=== PATIENT | female | born 1945 | race Caucasian/White ===

== ENCOUNTER → 2017-12-29 15:27 | Outpatient (CLI) | payer OTHER, SELFPAY ==
--- NOTE | 2017-12-29 15:37 | RAD_ITS ---
STUDY: X-RAY - PELVIS REASON FOR EXAM: Female, 72 years old. Pain TECHNIQUE: One view of the pelvis was obtained. COMPARISON: None. FINDINGS: There is a non-specific bowel gas pattern. Normal visualized soft tissue structures. Normal bilateral iliac wings, sacroiliac joints and visualized sacrum. Normal visualized bilateral superior and inferior pubic rami. Normal pubic symphysis. Normal ischial tuberosities. Normal visualized right femoral head. Normal right acetabulum. Normal right hip joint. Normal visualized left femoral head. Normal left acetabulum. Normal left hip joint. RAD/Pelvis 1 or 2 Views IMPRESSION: Normal x-ray examination of the pelvis. No fracture Electronically Signed: Floyd Morocho, at 7:30 EDT Tel , Service support ,
[2017-12-29 17:21] LABS: Absolute Lymphocyte Count 1.92 X10^3/ul (0.83-4.51); Absolute Neutrophil Count 5.6 X10^3/uL (2.0-7.7); Basophil# 0.02 X10^3/uL; Basophil% 0.2 % (0-1); Eosinophil# 0.12 X10^3/uL; Eosinophils% 1.5 % (0-5); Hematocrit 37.5 % (37-47); Hemoglobin 11.9 g/dl (12.0-15.0); Lymphocyte # 1.92 X10^3/ul (4.0); Lymphocyte % 23.4 % (19-41); Mean Corp Hgb Conc 31.7 g/gl (32-36); Mean Corpuscular Hgb 28.4 pg (27.0-32.0); Mean Corpuscular Volume 89.5 fL (81-99); Mean Platelet Vol. 9.7 fl (6.2-12.0); Monocyte# 0.58 X10^3/uL; Monocyte% 7.1 % (0-10); Neutrophil # 5.57 X10^3/uL (2.7-7.7); Neutrophil % 67.7 % (47-70); Platelet Count 359 K/mm3 (150-450); RBC Distribution Width CV 13.8 % (11.6-14.6); RBC Distribution Width SD 45.2 fl (35.1-43.9); Red Blood Count 4.19 M/mm3 (4.2-5.4); White Blood Count 8.2 K/mm3 (4.4-11.0)
[2017-12-29 17:34] LABS: AST(SGOT) 22 U/L (15-37); Alanine Aminotransfer ALT/SGPT 35 U/L (13-56); Alkaline Phosphatase 115 U/L (45-117); Anion Gap 8 (5-15); BUN 25 mg/dL (7-18); BUN/Creat Ratio 21.6 RATIO (10-20); Calcium,Total 8.9 mg/dL (8.5-10.1); Chloride 107 mmol/L (98-107); Creatinine, Serum 1.16 mg/dL (0.55-1.02); EST Glomerular Filtration Rate 49 mL/min (>60); Est Glom Filt Rate - Afr Amer 59 mL/min (>60); Globulin 4.1 g/dL (2.2-4.2); Glucose 91 mg/dL (74-106); Potassium 4.8 mmol/L (3.5-5.1); Protein, Total 8.1 g/dL (6.4-8.2); Rheumatoid Factor < 10.0 IU/mL (<15); Sodium Level 141 mmol/L (136-145)
[2017-12-29 17:37] LABS: POSITIVE COUNT NO; POSITIVE DIFFERENTIAL NO; POSITIVE MORPHOLOGY NO
[2018-01-04 14:07] LABS: Endomysial Antibody IgA Positive (Negative); Immunoglobulin A 205 mg/dL (87-352)
[2018-01-04 16:09] LABS: CCP IgG Antibodies 14 units (0-19); Deamidated Gliadin IgA 141 units (0-19); Deamidated Gliadin IgG 126 units (0-19); HEPATITIS B SURFACE AG Negative (Negative); HLA B27 Negative (.); Hep B Surface Antibodies Non Reactive (.); Hep C Antibodies <0.1 s/co ratio (0.0-0.9); t-Transglutaminase IgA 51 U/mL (0-3)
== END ==
PROVIDERS: Family Provider Internal Medicine; PCP Internal Medicine; Visit Provider Internal Medicine Rheumatology
DX: M06.4 Inflammatory polyarthropathy (principal); K90.0 Celiac disease; J45.909 Unspecified asthma, uncomplicated; Z87.19 Personal history of other diseases of the digestive system
CPT/HCPCS: 36415; 72170; 80053; 81374; 82784; 83516; 85025; 86200; 86255; 86431; 86706; 86803; 87340

== ENCOUNTER → 2018-04-28 10:03 | Outpatient (CLI) | payer OTHER, SELFPAY ==
[2018-04-28 11:31] LABS: Absolute Lymphocyte Count 1.36 X10^3/ul (0.83-4.51); Absolute Neutrophil Count 2.5 X10^3/uL (2.0-7.7); Basophil# 0.04 X10^3/uL; Basophil% 0.9 % (0-1); Eosinophil# 0.08 X10^3/uL; Eosinophils% 1.8 % (0-5); Hematocrit 36.3 % (37-47); Hemoglobin 11.9 g/dl (12.0-15.0); Lymphocyte # 1.36 X10^3/ul (4.0); Lymphocyte % 30.6 % (19-41); Mean Corp Hgb Conc 32.8 g/gl (32-36); Mean Corpuscular Hgb 28.5 pg (27.0-32.0); Mean Corpuscular Volume 87.1 fL (81-99); Mean Platelet Vol. 9.6 fl (6.2-12.0); Monocyte# 0.51 X10^3/uL; Monocyte% 11.5 % (0-10); Neutrophil # 2.46 X10^3/uL (2.7-7.7); Neutrophil % 55.2 % (47-70); POSITIVE COUNT NO; POSITIVE DIFFERENTIAL NO; POSITIVE MORPHOLOGY NO; Platelet Count 294 K/mm3 (150-450); RBC Distribution Width CV 14.1 % (11.6-14.6); RBC Distribution Width SD 44.8 fl (35.1-43.9); Red Blood Count 4.17 M/mm3 (4.2-5.4); White Blood Count 4.5 K/mm3 (4.4-11.0)
[2018-04-28 11:57] LABS: AST(SGOT) 21 U/L (15-37); Alanine Aminotransfer ALT/SGPT 33 U/L (13-56); Albumin, Serum 3.9 g/dL (3.2-5.0); Alkaline Phosphatase 110 U/L (45-117); Anion Gap 6 (5-15); BUN 15 mg/dL (7-18); BUN/Creat Ratio 16.9 RATIO (10-20); Chloride 108 mmol/L (98-107); Creatinine, Serum 0.89 mg/dL (0.55-1.02); EST Glomerular Filtration Rate 67 mL/min (>60); Est Glom Filt Rate - Afr Amer 81 mL/min (>60); Glucose 93 mg/dL (74-106); Potassium 4.3 mmol/L (3.5-5.1); Protein, Total 7.9 g/dL (6.4-8.2); Sodium Level 141 mmol/L (136-145)
--- OUTSIDE RECORDS SUMMARY | 2018-06-22 19:43 | XMS RPT_ITS ---
:1945 Author Organization OHIP Care Team Providers Name Role Phone Anabel Mendez Attending Unavailable Vellanki, Anabel Referring Unavailable Talampas, Leandra Primary Care Unavailable Vellanki, Anabel Attending Unavailable Vellanki, Anabel Referring Unavailable Talampas, Leandra Primary Care Unavailable ORI WANG Attending Unavailable ORI WANG Referring Unavailable TALAMPAS, LEANDRA D Referring Unavailable TALAMPAS, LEANDRA D Attending Unavailable JANELLE TAYLOR ([facility]) Attending Unavailable TALAMPAS, LEANDRA D Referring Unavailable TALAMPAS, LEANDRA D Attending Unavailable Talampas, Leandra D Admitting Unavailable Talampas, Leandra D Attending Unavailable Talampas, Leandra D Primary Care Unavailable PROBLEMS PROBLEMS DATE TYPE CONDITION / CODE ATTENDING STATUS SOURCE 04/28/2018 Unknown M06.4 - Inflammatory Vellanki, Anabel Active [facility] polyarthropathy / Community M06.4(ICD-10) Hospital Repository 04/28/2018 Unknown K90.0 - Celiac Vellanki, Anabel Active [facility] disease / Community K90.0(ICD-10) Hospital Repository 04/28/2018 Unknown J45.909 - Unspecified Vellanki, Anabel Active [facility] asthma, uncomplicated Community / J45.909(ICD-10) Hospital Repository 01/10/2018 Active Other fatigue / NA Active [facility] R53.83(ICD-10) [facility] [place] Repository 01/10/2018 Active Stiffness of NA Active [facility] unspecified joint, [facility] not elsewhere [place] classified / Repository M25.60(ICD-10) 01/10/2018 Active Elevated C-reactive NA Active [facility] protein (CRP) / [facility] R79.82(ICD-10) [place] Repository 12/29/2017 Unknown Z87.19 - Personal Anabel Mendez Active [facility] history of other Community diseases of the Hospital digestive system / Repository Z87.19(ICD-10) 11/17/2017 Active Unknown / LEANDRA GRAY Active [facility] UNK(Unknown) D [facility] [place] Repository 04/05/2011 Active Vitamin D deficiency, NA Active [facility] unspecified / [facility] E55.9(ICD-10) [place] Rep[facility] 12/01/2005 Active Celiac disease / NA Active [facility] K90.0(ICD-10) [facility] [place] Repository 11/11/2017 Active Pain in unspecified NA Active [facility] joint / [facility] M25.50(ICD-10) [place] Repository 05/16/2017 Active Encounter for NA Active [facility] screening mammogram [facility] for malignant [place] neoplasm of breast / Repository Z12.31(ICD-10) PROCEDURES PROCEDURES No Procedure Records FoundRESULTS RESULTS CBC W/DIFF, AUTOMATED Collected: 04/28/2018 Status: F Source: [place] 10:22 AM [facility] TO [facility] REPOSITORY TYPE CODE TESTS RESULT OUT OF RANGE REFERENCE UNITS LAB L100.1000 4.4-11.0 K/mm3 Normal WBC 4.5 LAB L100.1200 4.2-5.4 M/mm3 Low RBC 4.17 LAB L100.1300 12.0-15.0 g/dl Low HGB 11.9 LAB L100.1400 37-47 % Low HCT 36.3 LAB L100.1500 81-99 fL Normal MCV 87.1 LAB L100.1600 27.0-32.0 pg Normal MCH 28.5 LAB L100.1700 32-36 g/gl Normal MCHC 32.8 LAB L100.1810 11.6-14.6 % Normal RDW CV 14.1 LAB L100.1820 35.1-43.9 fl High RDW SD 44.8 LAB L100.1900 150-450 K/mm3 Normal PLT 294 LAB L100.2000 6.2-12.0 fl Normal MPV 9.6 LAB L100.2100 47-70 % Normal NEUT% 55.2 LAB L100.2200 19-41 % Normal LY% 30.6 LAB L100.2300 0-10 % High MONO% 11.5 LAB L100.2400 0-5 % Normal EO% 1.8 LAB L100.2500 0-1 % Normal BASO% 0.9 LAB L100.2550 0.0-0.9 % Normal IM GRAN % 0.000 Result Comment: IG% - Immature Granulocytes (promyelocytes, myelocytes and metamyelocytes) > 1% indicates that a LEFT SHIFT is Present. LAB L100.2620 2.0-7.7 X10 3/uL Normal Absolute Neut 2.5 LAB L100.2720 0.83-4.51 X10 3/ul Normal Absolute Lymph 1.36 Performed By: #### L100.0100 #### [facility] [address] [place], [address] COMPREHENSIVE METABOLIC Collected: 04/28/2018 Status: F Source: [facility] 10:22 AM [facility] REPOSITORY TYPE CODE TESTS RESULT OUT OF RANGE REFERENCE UNITS LAB L501.0100 74-106 mg/dL Normal GLU 93 Result Comment: Please note revised GLUCOSE reference range effective 2017. LAB L501.1000 7-18 mg/dL Normal BUN 15 LAB L501.1100 0.55-1.02 mg/dL Normal CREAT,SERUM 0.89 Result Comment: The validity of the calculated GFR AND GFRAA in patients over 70 years has not been determined. Clinical correlation is essential. LAB L501.1110 >60 mL/min Normal EST GFR 67 Result Comment: Non- GFR Calc LAB L501.1115 >60 mL/min Normal EST GFR - AA 81 Result Comment: GFR Calc LAB L501.1300 10-20 RATIO Normal BUN/CRE 16.9 LAB L501.1500 6.4-8.2 g/dL T Normal PROT 7.9 LAB L501.1800 3.2-5.0 g/dL Normal ALB 3.9 LAB L501.1950 2.2-4.2 g/dL Normal GLOB 4.0 LAB L501.2000 0.9-2.4 RATIO Normal A/G 1.0 LAB L501.2200 8.5-10.1 mg/dL CA Normal 9.0 LAB L501.4100 15-37 U/L Normal AST 21 LAB L501.4305 45-117 U/L Normal ALK P 110 LAB L501.4405 13-56 U/L Normal ALT 33 LAB L501.4600 0.20-1.00 mg/dL T Normal BILI 0.40 LAB L501.5300 136-145 mmol/L NA Normal 141 LAB L501.5600 3.5-5.1 mmol/L K Normal 4.3 LAB L501.5900 98-107 mmol/L High CL 108 LAB L501.6100 21.0-32.0 mmol/L Normal CO2 27.0 LAB L501.6200 5-15 Normal GAP 6 Performed By: #### L500.4050 #### [facility] [address] [place], [address] CNPN Observed: 02/12/2018 Status: COMPLETED Source: [facility] 12:00 AM [facility] REPOSITORY Telephone (INTMWS) SHANITA HERNANDEZ ([id number]) 1945 F T Date Time Provider Department 02/12/18 LEANDRA GRAY INTMWS During your visit today, we recorded the following information about you: Katrin Huerta, RN, RN 02/12/2018 11:09 AM Signed Pt calls, stating she will need to have PT referral corrected to include neck, shoulders and back. States she will be going to back to PT that she had seen previously in [place]. Please fax referral to pt at [phone]. Katrin Huerta RN, RN 02/12/2018 12:20 PM Signed Faxed to pt. Allergies As of Date: 02/12/2018 Noted Allergy Reaction RYE 12/01/2009 6 - Diarrhea WHEAT GLUTEN 05/03/2005 6 - Diarrhea Date Reviewed: 01/24/2018 Reviewed by: Venice Matthews Ma - Fully Assessed Reason for Visit: PT Order [Other] Primary Visit Diagnosis:Neck pain [M54.2] Other Visit Diagnoses:Bilateral shoulder pain, unspecified chronicity [M25.511, M25.512] Back pain, unspecified back location, unspecified back pain laterality, unspecified chronicity [M54.9] Order(s):CONSULT TO OUTSIDE PHYSICAL THERA [[id number]] Order #: [id number]: 1 Prescriptions as of 02/12/2018 Sig: MELOXICAM 15 MG TABLET Take 1 tablet by mouth once d* ALBUTEROL SULFATE HFA 90 MCG/* Inhale 2 Puffs as instructed * CHOLECALCIFEROL (VITAMIN D3) * Take 2 tablets by mouth once * MULTIVITAMIN TABLET Take 1 tablet by mouth once d* BACK BRACE QuickDraw Patient not taking: Reported on 01/24/2018 * OMEGA-3 FATTY ACIDS 500 MG CA* Take one(1) capsule daily. St* * CALCIUM CARBONATE 600 MG (1,5* Take one(1) tablet daily. 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] INVALID FOR* Vitamin D deficiency [E55.9] INVALID FOR* Cholelithiasis [K80.20] INVALID FOR* Numbness of left foot [R20.8] INVALID FOR* Buttock pain [M79.1] INVALID FOR* Sacroiliac joint pain [M53.3] INVALID FOR* Lumbar strain [S39.012A] INVALID FOR* Lumbar radiculopathy [M54.16] INVALID FOR* Lumbar disc herniation [M51.26] INVALID FOR* Osteopenia [M85.80] Other specified anemias [D64.89] External hemorrhoids without mention of complic* AK (actinic keratosis) [L57.0] Actinic skin damage [L57.8] 02/23/2016 Inflammatory polyarthritis (HCC) [M06.4] INVALID FOR* Encounter Status:Closed by KATRIN HUERTA on 02/12/18 PROGRESS Observed: 01/24/2018 Status: COMPLETED Source: [place] 12:41 PM [facility] REPOSITORY HNO ID: [id number] Author: Leandra Gray Service: (none) Author Type: Physician Type: Progress Notes Filed: 02/11/2018 5:16 PM Note Text: Patient presents with: Discussion: regarding labs AND xrays SUBJECTIVE: Shanita Hernandez is a 72 year old year old lady here today for follow up appointment for review of medical conditions. Noted arthritis symptoms. Stopped meloxicam after 1 month so has been off a month. 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 Walton-3 Fatty Acids (FISH OIL) 500 mg ORAL Cap Take one(1) capsule daily. Stopping 12/18/14 for surgery calcium carbonate 600 mg-cholecalciferol 200 units (CALCIUM 600 + D,3,) 600 mg(1,500mg) -200 unit ORAL Tab Take one(1) tablet daily. Stopped 12/18/14 for surgery meloxicam (MOBIC) 15 mg tablet Take 1 tablet by mouth once daily. With food. (Patient not taking: Reported on 01/24/2018 ) albuterol HFA (VENTOLIN HFA) 90 mcg/actuation inhaler Inhale 2 Puffs as instructed every 6 hours as needed (coughing, wheezing). multivitamin tablet Take 1 tablet by mouth once daily. Back Brace misc QuickDraw (Patient not taking: Reported on 01/24/2018 ) No current facility-administered medications for this visit. OBJECTIVE: BP 124/58 Pulse 112 Resp 16 Wt 75.6 kg (166 lb 9.6 oz) SpO2 97% BMI 30.47 kg/m? Patient is alert, oriented times 3, no apparent distress, affect is bright, reactive. Heart: Regular rate, rhythm, no murmurs, gallops, rubs. Lungs: Clear to auscultation, bilaterally, breathing non labored. Ext: No cyanosis, clubbing, or edema. Synovitis MCP joints both hands. ASSESSMENT AND PLAN: Encounter Diagnosis ICD-10-CM 1. Inflammatory polyarthritis (HCC) M06.4 meloxicam (MOBIC) 15 mg tablet 2. Leg pain, lateral, right M79.604 CONSULT TO PHYSICAL THERAPY 3. Right leg pain M79.604 CONSULT TO PHYSICAL THERAPY 4. Pain in both upper extremities M79.601 CONSULT TO PHYSICAL THERAPY M79.602 deltoid muscles 5. Vitamin D deficiency E55.9 6. Celiac disease K90.0 celiac labs all positive Above issues addressed with patient. Patient involved in shared decision making for management of her medical issues. History and medications reviewed. Epic updated as needed Refills taken care of and meds adjusted as indicated after reviewed history, exam and labs. Health Maintenance reviewed. Updated record and/or ordered tests as recorded. Encouraged on efforts at healthy diet and regular exercise and adequate sleep. Multiple questions and concerns addressed as noted above. Further evaluation and treatment as indicated. Referral as noted above. Discussed management of Celiac. The majority of the visit was spent counseling and/or coordinating care for the patient. Zipx-ap-uzoi time was at least 20 minutes. Leandra Gray MD CNOV Observed: 01/24/2018 Status: COMPLETED Source: [facility] 11:20 AM [facility] REPOSIT[facility] Office Visit (INTMWS) SHANITA HERNANDEZ ([id number]) 1945 F [facility] Date Time Provider Department 01/24/18 11:20 AM LEANDRA GRAY INTMechelleWS During your visit today, we recorded the following information about you: Pulse Respiration Blood pressure Weight 112/minute 16/minute 124/58 75.6 kg Leandra Gray MD 02/11/2018 5:16 PM Signed Patient presents with: Discussion: regarding labs AND xrays SUBJECTIVE: Shanita Hernandez is a 72 year old year old lady here today for follow up appointment for review of medical conditions. Noted arthritis symptoms. Stopped meloxicam after 1 month so has been off a month. 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 Walton-3 Fatty Acids (FISH OIL) 500 mg ORAL Cap Take one(1) capsule daily. Stopping 12/18/14 for surgery calcium carbonate 600 mg-cholecalciferol 200 units (CALCIUM 600 + D,3,) 600 mg(1,500mg) -200 unit ORAL Tab Take one(1) tablet daily. Stopped 12/18/14 for surgery meloxicam (MOBIC) 15 mg tablet Take 1 tablet by mouth once daily. With food. (Patient not taking: Reported on 01/24/2018 ) albuterol HFA (VENTOLIN HFA) 90 mcg/actuation inhaler Inhale 2 Puffs as instructed every 6 hours as needed (coughing, wheezing). multivitamin tablet Take 1 tablet by mouth once daily. Back Brace misc QuickDraw (Patient not taking: Reported on 01/24/2018 ) No current facility-administered medications for this visit. OBJECTIVE: BP 124/58 Pulse 112 Resp 16 Wt 75.6 kg (166 lb 9.6 oz) SpO2 97% BMI 30.47 kg/m? Patient is alert, oriented times 3, no apparent distress, affect is bright, reactive. Heart: Regular rate, rhythm, no murmurs, gallops, rubs. Lungs: Clear to auscultation, bilaterally, breathing non labored. Ext: No cyanosis, clubbing, or edema. Synovitis MCP joints both hands. ASSESSMENT AND PLAN: Encounter Diagnosis ICD-10-CM 1. Inflammatory polyarthritis (HCC) M06.4 meloxicam (MOBIC) 15 mg tablet 2. Leg pain, lateral, right M79.604 CONSULT TO PHYSICAL THERAPY 3. Right leg pain M79.604 CONSULT TO PHYSICAL THERAPY 4. Pain in both upper extremities M79.601 CONSULT TO PHYSICAL THERAPY M79.602 deltoid muscles 5. Vitamin D deficiency E55.9 6. Celiac disease K90.0 celiac labs all positive Above issues addressed with patient. Patient involved in shared decision making for management of her medical issues. History and medications reviewed. Epic updated as needed Refills taken care of and meds adjusted as indicated after reviewed history, exam and labs. Health Maintenance reviewed. Updated record and/or ordered tests as recorded. Encouraged on efforts at healthy diet and regular exercise and adequate sleep. Multiple questions and concerns addressed as noted above. Further evaluation and treatment as indicated. Referral as noted above. Discussed management of Celiac. The majority of the visit was spent counseling and/or coordinating care for the patient. Fnur-ep-stil time was at least 20 minutes. Leandra Gray MD Referring Provider: SELF [200] Allergies As of Date: 01/24/2018 Noted Allergy Reaction RYE 12/01/2009 6 - Diarrhea WHEAT GLUTEN 05/03/2005 6 - Diarrhea Date Reviewed: 01/24/2018 Reviewed by: Venice Matthews Ma - Fully Assessed Reason for Visit: Discussion [813] Cmt: regarding labs AND xrays Primary Visit Diagnosis:Inflammatory polyarthritis (HCC) [M06.4] Other Visit Diagnoses:Leg pain, lateral, right [M79.604] Right leg pain [M79.604] Pain in both upper extremities [M79.601, M79.602] Comment:deltoid muscles Vitamin D deficiency [E55.9] Celiac disease [K90.0] Comment:celiac labs all positive Order(s):meloxicam (MOBIC) 15 mg tabletTake 1 tablet by mouth once daily. With food.Disp: Rfl: CONSULT TO PHYSICAL THERAPY [3665] Order #: [id number]: 1 Prescriptions as of 01/24/2018 Sig: CHOLECALCIFEROL (VITAMIN D3) * Take 2 tablets by mouth once * * OMEGA-3 FATTY ACIDS 500 MG CA* Take one(1) capsule daily. St* * CALCIUM CARBONATE 600 MG (1,5* Take one(1) tablet daily. 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] INVALID FOR* Vitamin D deficiency [E55.9] INVALID FOR* Cholelithiasis [K80.20] INVALID FOR* Numbness of left foot [R20.8] INVALID FOR* Buttock pain [M79.1] INVALID FOR* Sacroiliac joint pain [M53.3] INVALID FOR* Lumbar strain [S39.012A] INVALID FOR* Lumbar radiculopathy [M54.16] INVALID FOR* Lumbar disc herniation [M51.26] INVALID FOR* Osteopenia [M85.80] Other specified anemias [D64.89] External hemorrhoids without mention of complic* AK (actinic keratosis) [L57.0] Actinic skin damage [L57.8] 02/23/2016 Prescriptions ordered this encounter Disp Refills Start End MELOXICAM 15 MG TABLET 01/24/2018 Class: Med Update Route: ORAL Sig: Take 1 tablet by mouth once daily. With food. Medications Discontinued During This Encounter meloxicam (MOBIC) 15 mg tablet 30 t* 2 12/01/2017 01/24/2018 Route: ORAL Sig: Take 1 tablet by mouth once daily. With food. Patient not taking: Reported on 01/24/2018 Disc: Reason for discontinue is not on file. Disposition: Return for patient will cancel Sept appt if does not need. Follow-up and Disposition History Recorded Encounter Status:Closed by LEANDRA GRAY MD on 02/11/18 JESSIE Observed: 01/15/2018 Status: COMPLETED Source: [facility] 12:00 AM [facility] REPOSITORY Telephone (INTMWS) SARANSHANITA ([id number]) 1945 F [facility] Date Time Provider Department 01/15/18 LEANDRA GRAY During your visit today, we recorded the following information about you: Addie Hartmann SKYLAR 01/15/2018 3:36 PM Signed Pt walked in today. She thought she had any appt today with Dr. Michael. This was cancelled without her knowing it. Pt seen Dr. Mendez 12/29/17 and wanted to review results of labs and x ray that was completed at [facility]. She is still having pain. Affecting her ADLs. Appt with pcp arranged 02/03/18. Addie Hartmann SKYLAR 01/23/2018 8:19 AM Signed Called pt and offered sooner appt 01/24/18 and she declined. She will keep 02/03/18 appt. Addie Hartmann SKYLAR 01/23/2018 8:47 AM Signed Pt has called back and changed mind. She would like 01/23/18 at 1120. This was again arranged. Allergies As of Date: 01/15/2018 Noted Allergy Reaction RYE 12/01/2009 6 - Diarrhea WHEAT GLUTEN 05/03/2005 6 - Diarrhea Date Reviewed: 12/01/2017 Reviewed by: Miranda Beck LPN - Fully Assessed Reason for Visit: Patient Update [1234] Prescriptions as of 01/15/2018 Sig: MELOXICAM 15 MG TABLET Take 1 tablet by mouth once d* ALBUTEROL SULFATE HFA 90 MCG/* Inhale 2 Puffs as instructed * CHOLECALCIFEROL (VITAMIN D3) * Take 2 tablets by mouth once * MULTIVITAMIN TABLET Take 1 tablet by mouth once d* BACK BRACE QuickDraw * OMEGA-3 FATTY ACIDS 500 MG CA* Take one(1) capsule daily. St* * CALCIUM CARBONATE 600 MG (1,5* Take one(1) tablet daily. 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] INVALID FOR* Vitamin D deficiency [E55.9] INVALID FOR* Cholelithiasis [K80.20] INVALID FOR* Numbness of left foot [R20.8] INVALID FOR* Buttock pain [M79.1] INVALID FOR* Sacroiliac joint pain [M53.3] INVALID FOR* Lumbar strain [S39.012A] INVALID FOR* Lumbar radiculopathy [M54.16] INVALID FOR* Lumbar disc herniation [M51.26] INVALID FOR* Osteopenia [M85.80] Other specified anemias [D64.89] External hemorrhoids without mention of complic* AK (actinic keratosis) [L57.0] Actinic skin damage [L57.8] 02/23/2016 Encounter Status:Closed by ADDIE HARTMANN LPN on 01/23/18 VITAMIN D 25 HYDROXY Collected: 01/10/2018 Status: F Source: [place] 7:40 [facility] REPOSITORY TYPE CODE TESTS RESULT OUT OF REFERENCE UNITS RANGE LAB VITD 31.0-80.0 ng/mL Vitamin D 25 39.7 Hydroxy Result Comment: Classification of 25 [place] Vitamin D status: Insufficiency/Moderate Deficiency: < or = 30 ng/mL Sufficiency/Optimal Levels: 31 to 80 ng/mL Toxicity: > 100 ng/mL Test performed by chemiluminescent immunoassay. Performed By: #### VITD, CRP, FT4, TSH #### [facility] [employer] [address] [place], [place] [address] C-REACTIVE PROTEIN Collected: 01/10/2018 Status: F Source: [place] 7:40 [facility] REPOSITORY TYPE CODE TESTS RESULT OUT OF REFERENCE UNITS RANGE LAB CRP <0.9 mg/dL High C-Reactive 1.4 Protein Performed By: #### VITD, CRP, FT4, TSH #### [facility] [employer] [address] [place], [place] [address] FREE T4 Collected: 01/10/2018 Status: F Source: [place] 7:40 AM [facility] TYPE CODE TESTS RESULT OUT OF RANGE REFERENCE UNITS LAB FT4 0.9-1.7 ng/dL Free T4 1.0 Performed By: #### VITD, CRP, FT4, TSH #### [facility] [address] [place], [place] [address] TSH Collected: 01/10/2018 Status: F Source: [place] 7:40 AM [facility] TYPE CODE TESTS RESULT OUT OF RANGE REFERENCE UNITS LAB TSH 0.400-5.500 uU/mL TSH 5.300 Performed By: #### VITD, CRP, FT4, TSH #### [facility] [address] [place], [place] [address] COMPREHENSIVE METABOLIC Collected: 12/29/2017 Status: F Source: [facility] 3:44 PM [facility] REPOSITORY TYPE CODE TESTS RESULT OUT OF RANGE REFERENCE UNITS LAB L501.0100 74-106 mg/dL Normal GLU 91 Result Comment: Please note revised GLUCOSE reference range effective 2017. LAB L501.1000 7-18 mg/dL High BUN 25 LAB L501.1100 0.55-1.02 mg/dL High CREAT,SERUM 1.16 Result Comment: The validity of the calculated GFR AND GFRAA in patients over 70 years has not been determined. Clinical correlation is essential. LAB L501.1110 >60 mL/min Low EST GFR 49 Result Comment: Non- GFR Calc LAB L501.1115 >60 mL/min Low EST GFR - AA 59 Result Comment: GFR Calc LAB L501.1300 10-20 RATIO High BUN/CRE 21.6 LAB L501.1500 6.4-8.2 g/dL T Normal PROT 8.1 LAB L501.1800 3.2-5.0 g/dL Normal ALB 4.0 LAB L501.1950 2.2-4.2 g/dL Normal GLOB 4.1 LAB L501.2000 0.9-2.4 RATIO Normal A/G 1.0 LAB L501.2200 8.5-10.1 mg/dL CA Normal 8.9 LAB L501.4100 15-37 U/L Normal AST 22 LAB L501.4305 45-117 U/L Normal ALK P 115 LAB L501.4405 13-56 U/L Normal ALT 35 LAB L501.4600 0.20-1.00 mg/dL T Normal BILI 0.30 LAB L501.5300 136-145 mmol/L NA Normal 141 LAB L501.5600 3.5-5.1 mmol/L K Normal 4.8 LAB L501.5900 98-107 mmol/L CL Normal 107 LAB L501.6100 21.0-32.0 mmol/L Normal CO2 26.0 LAB L501.6200 5-15 Normal GAP 8 Performed By: #### L500.4050, L505.7010 #### [facility] [address] [place], [place], [address] RHEUMATOID FACTOR Collected: 12/29/2017 Status: F Source: [place] 3:44 PM [facility] REPOSITORY TYPE CODE TESTS RESULT OUT OF RANGE REFERENCE UNITS LAB L505.7010 <15 IU/mL Normal RHEUMATOID FAC < 10.0 Performed By: #### L500.4050, L505.7010 #### [facility] [address] [place], [address] CBC W/DIFF, AUTOMATED Collected: 12/29/2017 Status: F Source: [place] 3:44 PM [facility] REPOSITORY TYPE CODE TESTS RESULT OUT OF RANGE REFERENCE UNITS LAB L100.1000 4.4-11.0 K/mm3 Normal WBC 8.2 LAB L100.1200 4.2-5.4 M/mm3 Low RBC 4.19 LAB L100.1300 12.0-15.0 g/dl Low HGB 11.9 LAB L100.1400 37-47 % Normal HCT 37.5 LAB L100.1500 81-99 fL Normal MCV 89.5 LAB L100.1600 27.0-32.0 pg Normal MCH 28.4 LAB L100.1700 32-36 g/gl Low MCHC 31.7 LAB L100.1810 11.6-14.6 % Normal RDW CV 13.8 LAB L100.1820 35.1-43.9 fl High RDW SD 45.2 LAB L100.1900 150-450 K/mm3 Normal PLT 359 LAB L100.2000 6.2-12.0 fl Normal MPV 9.7 LAB L100.2100 47-70 % Normal NEUT% 67.7 LAB L100.2200 19-41 % Normal LY% 23.4 LAB L100.2300 0-10 % Normal MONO% 7.1 LAB L100.2400 0-5 % Normal EO% 1.5 LAB L100.2500 0-1 % Normal BASO% 0.2 LAB L100.2550 0.0-0.9 % Normal IM GRAN % 0.100 Result Comment: IG% - Immature Granulocytes (promyelocytes, myelocytes and metamyelocytes) > 1% indicates that a LEFT SHIFT is Present. LAB L100.2620 2.0-7.7 X10 3/uL Normal Absolute Neut 5.6 LAB L100.2720 0.83-4.51 X10 3/ul Normal Absolute Lymph 1.92 Performed By: #### L100.0100 #### [facility] [address] [place] [address]. [place], [address] HEPATITIS B SURFACE Collected: 12/29/2017 Status: F Source: [facility] 3:44 PM [facility] REPOSITORY Order Comment: Is Patient Fasting? N TYPE CODE TESTS RESULT OUT OF RANGE REFERENCE UNITS LAB L3100.0400 Negative Normal HB Negative SURF AG Result Comment: Performed at: - [address] [id number] Heddler: Mikel Blake PhD, Phone: [phone] Performed at: 2 - [address] [id number] Heddler: Micheal Umana PhD, Phone: [phone] Performed at: - [address] [id number] Heddler: Gume Hernandez MD, Phone: [phone] Performed By: #### L3100.0390, L3100.0528, L3100.0625, L3200.1400, L3410.1400, L3410.2450, L3410.2710, L3410.2920, L4600.0100 #### [facility] (refer to report for specific site) refer to report for address and phone number HEP B SURFACE Collected: 12/29/2017 Status: F Source: [place] ANTIBODIES 3:44 PM [facility] REPOSITORY Order Comment: Is Patient Fasting? N TYPE CODE TESTS RESULT OUT OF RANGE REFERENCE UNITS LAB L3100.0528 . Normal Hep B Non Reactive [place]ro AB Result Comment: Non Reactive: Inconsistent with immunity, less than 10 mIU/mL Reactive: Consistent with immunity, greater than 9.9 mIU/mL Performed By: #### L3100.0390, L3100.0528, L3100.0625, L3200.1400, L3410.1400, L3410.2450, L3410.2710, L3410.2920, L4600.0100 #### [facility] (refer to report for specific site) refer to report for address and phone number HEPATITIS C ANTIBODIES Collected: 12/29/2017 Status: F Source: [place] 3:44 PM [facility] REPOSITORY Order Comment: Is Patient Fasting? N TYPE CODE TESTS RESULT OUT OF RANGE REFERENCE UNITS LAB L3100.0650 0.0-0.9 s/co ratio Normal HEP C AB <0.1 Result Comment: Negative: < 0.8 Indeterminate: 0.8 - 0.9 Positive: > 0.9 The CDC recommends that a positive HCV antibody result be followed up with a HCV Nucleic Acid Amplification test (038927). Performed By: #### L3100.0390, L3100.0528, L3100.0625, L3200.1400, L3410.1400, L3410.2450, L3410.2710, L3410.2920, L4600.0100 #### [facility] (refer to report for specific site) refer to report for address and phone number IMMUNOGLOBULIN A Collected: 12/29/2017 Status: F Source: [place] 3:44 PM [facility] REPOSITORY Order Comment: Is Patient Fasting? N TYPE CODE TESTS RESULT OUT OF RANGE REFERENCE UNITS LAB L3200.1400 87-352 mg/dL Normal IMMUNO A 205 Performed By: #### L3100.0390, L3100.0528, L3100.0625, L3200.1400, L3410.1400, L3410.2450, L3410.2710, L3410.2920, L4600.0100 #### [facility] (refer to report for specific site) refer to report for address and phone number HLA B27 Collected: 12/29/2017 Status: F Source: [place] 3:44 PM [facility] REPOSITORY Order Comment: Is Patient Fasting? N TYPE CODE TESTS RESULT OUT OF RANGE REFERENCE UNITS LAB L3410.1500 . Normal HLA Negative B27 Result Comment: HLA-B*27 Negative B27 allele interpretation for all loci based on IMGT/HLA database version 3.27 This test was developed and its performance characteristics determined by [facility]. It has not been cleared or approved by the Food and Drug Administration. [facility] Lab CLIA ID Number [id number] This test was performed using PCR (Polymerase Chain Reaction)/SSOP (Sequence Specific Oligonucleotide Probes) technique. SBT (Sequence Based Typing) and/or SSP (Sequence Specific Primers) may be used as supplemental methods when necessary. Please contact HLA Customer Service at if you have any questions. Director of HLA Laboratory Dr Micheal Umana, PhD Performed By: #### L3100.0390, L3100.0528, L3100.0625, L3200.1400, L3410.1400, L3410.2450, L3410.2710, L3410.2920, L4600.0100 #### [facility] (refer to report for specific site) refer to report for address and phone number GLIADIN AB PROF IGA, Collected: 12/29/2017 Status: F Source: [place] IGG 3:44 PM [facility] REPOSITORY Order Comment: Is Patient Fasting? N TYPE CODE TESTS RESULT OUT OF REFERENCE UNITS RANGE LAB L3410.2500 0-19 units ANTIGLIADIN High IGA 141 Result Comment: Negative 0 - 19 Weak Positive 20 - 30 Moderate to Strong Positive >30 LAB L3410.2600 0-19 units ANTIGLIADIN High IGG 126 Result Comment: Negative 0 - 19 Weak Positive 20 - 30 Moderate to Strong Positive >30 Performed By: #### L3100.0390, L3100.0528, L3100.0625, L3200.1400, L3410.1400, L3410.2450, L3410.2710, L3410.2920, L4600.0100 #### [facility] (refer to report for specific site) refer to report for address and phone number ENDOMYSIAL ANTIBODY Collected: 12/29/2017 Status: F Source: [place] IGA 3:44 PM [facility] REPOSITORY Order Comment: Is Patient Fasting? N TYPE CODE TESTS RESULT OUT OF REFERENCE UNITS RANGE LAB L3410.2710 Negative High ENDOMYSIAL IGA Positive Performed By: #### L3100.0390, L3100.0528, L3100.0625, L3200.1400, L3410.1400, L3410.2450, L3410.2710, L3410.2920, L4600.0100 #### [facility] (refer to report for specific site) refer to report for address and phone number T-TRANSGLUTAMINASE IGA Collected: Status: F Source: [place] 12/29/2017 3:44 PM [facility] REPOSITORY Order Comment: Is Patient Fasting? N TYPE CODE TESTS RESULT OUT OF RANGE REFERENCE UNITS LAB L3410.2920 0-3 U/mL High tTG IGA 51 Result Comment: Negative 0 - 3 Weak Positive 4 - 10 Positive >10 Tissue Transglutaminase (tTG) has been identified as the endomysial antigen. Studies have demonstr- ated that endomysial IgA antibodies have over 99% specificity for gluten sensitive enteropathy. Performed By: #### L3100.0390, L3100.0528, L3100.0625, L3200.1400, L3410.1400, L3410.2450, L3410.2710, L3410.2920, L4600.0100 #### [facility] (refer to report for specific site) refer to report for address and phone number CCP IGG ANTIBODIES Collected: 12/29/2017 Status: F Source: [place] 3:44 PM [facility] REPOSITORY Order Comment: Is Patient Fasting? N TYPE CODE TESTS RESULT OUT OF RANGE REFERENCE UNITS LAB L4600.0100 0-19 units Normal ANTI-CCP 14 [id number] Result Comment: Negative <20 Weak positive 20 - 39 Moderate positive 40 - 59 Strong positive >59 Performed By: #### L3100.0390, L3100.0528, L3100.0625, L3200.1400, L3410.1400, L3410.2450, L3410.2710, L3410.2920, L4600.0100 #### [facility] (refer to report for specific site) refer to report for address and phone number PELVIS 1 OR 2 VIEWS Observed: 12/29/2017 Status: F Source: [place] 3:38 PM [facility] REPOSITORY [facility] [place] [address] Pelvis 1 or 2 Views MR#: [id number] Acct: [id number] Name: SHANITA HERNANDEZ Rep #: [id number] : 1945 F 72 From: Floyd Morocho MD PCP: Leandra Gray MD Status: REG CLI Study: Pelvis 1 or 2 Views Date of Exam: 12/29/17 Exam# [id number] Ordering Dr: Anabel Mendez MD STUDY: X-RAY - PELVIS REASON FOR EXAM: Female, 72 years old. Pain TECHNIQUE: One view of the pelvis was obtained. COMPARISON: None. FINDINGS: There is a non-specific bowel gas pattern. Normal visualized soft tissue structures. Normal bilateral iliac wings, sacroiliac joints and visualized sacrum. Normal visualized bilateral superior and inferior pubic rami. Normal pubic symphysis. Normal ischial tuberosities. Normal visualized right femoral head. Normal right acetabulum. Normal right hip joint. Normal visualized left femoral head. Normal left acetabulum. Normal left hip joint. RAD/Pelvis 1 or 2 Views IMPRESSION: Normal x-ray examination of the pelvis. No fracture Electronically Signed: Floyd Morocho, at 7:30 EDT Tel , Service support , CC: Leandra Gray MD; Anabel Mendez MD Acquisition Manager: Signed PROGRESS Observed: 12/01/2017 Status: COMPLETED Source: [place] 2:10 PM [facility] REPOSIT[facility] HNO ID: [id number] Author: Janelle (Director Of Public Works) Older Service: (none) Author Type: Nurse Practitioner Type: Progress Notes Filed: 12/01/2017 2:16 PM Note Text: CC: Patient presents with: Fatigue: Can't move HPI Shanita Hernandez is a 72 year old female who presents today for follow-up. Patient was seen by PCP on 11/17 and had reported fatigue, malaise and joint stiffness/pain all starting in August. Prior to this was very active and felt great. Lab work-up generally unremarkable except mildly elevated CRP. Patient was advised to repeat labs in December. Today patient reports symptoms have been getting progressively worse. Went on a cruise where she sat for a few hours, very painful and stiff when trying to stand up. No new symptoms. Treats with Aleve occasionally which does provide modest, temporary relief. Requesting rheumatology referral and wondering what else can be done until then. 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 - External hemorrhoids without mention of complication - Osteopenia - Other specified anemias PAST SURGICAL HISTORY Procedure Laterality Date - BONE MARROW FOR ANEMIA HISTORY - BUNIONECTOMY, LAPID[place]-TYPE 12/21/12 Right foot - CHG COSMETIC SURGERY 1 HOUR 1996 - [facility] Colon[facility] - [facility]/ [facility] 07/16/09 - [facility]/BX 07/16/09 - EXCIS PRIMARY GANGLION WRIST right - KNEE SCOPE,DIAGNOSTIC 12/21/09 Arthroscopy, knee, right, CC, Herbie Lacey MD - KNEE SCOPE,MED+LAT MENIS REPAIR 11/28/12 ALLERGIES Hume; Wheat Gluten MEDICATIONS Cholecalciferol, Vitamin D3, 2,000 unit cap Take 2 tablets by mouth once daily. Back Brace misc QuickDraw Walton-3 Fatty Acids (FISH OIL) 500 mg ORAL Cap Take one(1) capsule daily. Stopping 12/18/14 for surgery calcium carbonate 600 mg-cholecalciferol 200 units (CALCIUM 600 + D,3,) 600 mg(1,500mg) -200 unit ORAL Tab Take one(1) tablet daily. Stopped 12/18/14 for surgery meloxicam (MOBIC) 15 mg tablet Take 1 tablet by mouth once daily. With food. albuterol HFA (VENTOLIN HFA) 90 mcg/actuation inhaler Inhale 2 Puffs as instructed every 6 hours as needed (coughing, wheezing). multivitamin tablet Take 1 tablet by mouth once daily. FAMILY HISTORY Problem Relation Age of Onset - Stroke Mother - Diabetes Mother DM type 2 in 80's to 90's - Diabetes Father DM type 2 in 80's to 90's - Thyroid Father - Breast Cancer Sister AT AGE 39 - Diabetes Maternal Grandmother - Diabetes Paternal Aunt - Diabetes Paternal Uncle x2 - Diabetes Other Maternal niece Type 1 - Thyroid Sister - Thyroid Sister Social History Substance Use Topics - Smoking status: Never Smoker - Smokeless tobacco: Never Used - Alcohol use No PHYSICAL EXAM BP 120/70 (BP Site: Left Arm, BP Position: Sitting, BP Cuff Size: Regular Adult) Pulse 84 Resp 16 Wt 77.1 kg (170 lb) BMI 31.09 kg/m? Appearance: well dressed well groomed, cooperative and pleasant Behavior: good eye contact Speech: fluent and coherent Mood: anxious Component Latest Ref Rng AND Units 11/11/2017 Protein, Total 6.3 - 8.0 g/dL 7.1 Albumin 3.9 - 4.9 g/dL 4.3 Calcium 8.5 - 10.2 mg/dL 9.4 Bilirubin, Total 0.2 - 1.3 mg/dL 0.3 Alkaline Phosphatase 32 - 117 U/L 94 AST 13 - 35 U/L 25 Glucose 74 - 99 mg/dL 105 (H) BUN 7 - 21 mg/dL 18 Creatinine 0.58 - 0.96 mg/dL 0.81 Sodium 136 - 144 mmol/L 139 Potassium 3.7 - 5.1 mmol/L 4.6 Chloride 97 - 105 mmol/L 101 CO2 22 - 30 mmol/L 25 Anion Gap 9 - 18 mmol/L 13 ALT 7 - 38 U/L 23 eGFR- >60 eGFR-All Other Races . >60 WBC 3.70 - 11.00 k/uL 7.43 RBC 3.90 - 5.20 m/uL 4.18 Hemoglobin 11.5 - 15.5 g/dL 12.2 Hematocrit 36.0 - 46.0 % 38.1 MCV 80.0 - 100.0 fL 91.1 MCH 26.0 - 34.0 pG 29.2 MCHC 30.5 - 36.0 g/dL 32.0 RDW-CV 11.5 - 15.0 % 13.6 Platelet Count 150 - 400 k/uL 367 MPV 9.0 - 12.7 fL 9.9 Absolute nRBC <0.01 k/uL <0.01 ALVIN Negative Negative ALVIN Titer Negative Negative ALVIN Pattern Not applicable for negative result. TSH 0.400 - 5.500 uU/mL 4.070 Free T4 0.9 - 1.7 ng/dL 1.0 Vitamin D 25 Hydroxy 31.0 - 80.0 ng/mL 32.8 WSR 0 - 20 mm/hr 17 CRP <0.9 mg/dL 1.7 (H) ASSESSMENT/PLAN: 1. Fatigue, unspecified type - ICD9: 780.79, ICD10: R53.83 (primary diagnosis) Etiology unclear, multiple possible etiologies Reviewed labs with patient and possible treatment options for pain relief Start Meloxicam. Discussed Cymbalta and Elavil, patient would like to hold off on those for now - CONSULT TO RHEUM/IMMUN DISEASE per patient request, plans on scheduling with Dr. Mendez Follow-up and labs as ordered by PCP 2. Myalgia - ICD9: 729.1, ICD10: M79.1 As above - CONSULT TO RHEUM/IMMUN DISEASE 3. Pain in joint involving multiple sites - ICD9: 719.49, ICD10: M25.50 As above - CONSULT TO RHEUM/IMMUN DISEASE Prescription instructions reviewed with patient as applicable. Potential red flag symptoms discussed with the patient. Reviewed appropriate action plan to take if red flag symptoms occur. Patient agreeable to treatment plan. During this patient visit I have spent approximately 20 minutes in counseling regarding treatment options, medications, test results and coordinating care. Janelle Taylor APRN.ANGELICA HODGES Observed: 12/01/2017 Status: COMPLETED Source: [place] 1:40 PM [facility] REPOSITORY Office Visit (INTMWS) SHANITA HERNANDEZ ([id number]) 1945 F CHT Date Time Provider Department 12/01/17 1:40 PM OLDER, JANELLE (ANGELICA) INTMWS During your visit today, we recorded the following information about you: Pulse Respiration Blood pressure Weight 84/minute 16/minute 120/70 77.1 kg Janelle Taylor APRN.CNP 12/01/2017 2:16 PM Signed CC: Patient presents with: Fatigue: Can't move HPI Shanita Hernandez is a 72 year old female who presents today for follow-up. Patient was seen by PCP on 11/17 and had reported fatigue, malaise and joint stiffness/pain all starting in August. Prior to this was very active and felt great. Lab work-up generally unremarkable except mildly elevated CRP. Patient was advised to repeat labs in December. Today patient reports symptoms have been getting progressively worse. Went on a cruise where she sat for a few hours, very painful and stiff when trying to stand up. No new symptoms. Treats with Aleve occasionally which does provide modest, temporary relief. Requesting rheumatology referral and wondering what else can be done until then. 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 - External hemorrhoids without mention of complication - Osteopenia - Other specified anemias PAST SURGICAL HISTORY Procedure Laterality Date - BONE MARROW FOR ANEMIA HISTORY - BUNIONECTOMY, [place]-TYPE 12/21/12 Right foot - G COSMETIC SURGERY 1 HOUR 1996 - [facility]COP [facility] 1996 Colonoscopy - COLONOSCOP W/ OR W/O [facility] SPEC 07/16/09 - [facility] W/BX 07/16/09 - EXCIS PRIMARY GANGLION WRIST right - KNEE SCOPE,DIAGNOSTIC 12/21/09 Arthroscopy, knee, right, CC, Herbie Lacey MD - KNEE SCOPE,MED+LAT MENIS REPAIR 11/28/12 ALLERGIES Hume; Wheat Gluten MEDICATIONS Cholecalciferol, Vitamin D3, 2,000 unit cap Take 2 tablets by mouth once daily. Back Brace misc QuickDraw Walton-3 Fatty Acids (FISH OIL) 500 mg ORAL Cap Take one(1) capsule daily. Stopping 12/18/14 for surgery calcium carbonate 600 mg-cholecalciferol 200 units (CALCIUM 600 + D,3,) 600 mg(1,500mg) -200 unit ORAL Tab Take one(1) tablet daily. Stopped 12/18/14 for surgery meloxicam (MOBIC) 15 mg tablet Take 1 tablet by mouth once daily. With food. albuterol HFA (VENTOLIN HFA) 90 mcg/actuation inhaler Inhale 2 Puffs as instructed every 6 hours as needed (coughing, wheezing). multivitamin tablet Take 1 tablet by mouth once daily. FAMILY HISTORY Problem Relation Age of Onset - Stroke Mother - Diabetes Mother DM type 2 in 80's to 90's - Diabetes Father DM type 2 in 80's to 90's - Thyroid Father - Breast Cancer Sister AT AGE 39 - Diabetes Maternal Grandmother - Diabetes Paternal Aunt - Diabetes Paternal Uncle x2 - Diabetes Other Maternal niece Type 1 - Thyroid Sister - Thyroid Sister Social History Substance Use Topics - Smoking status: Never Smoker - Smokeless tobacco: Never Used - Alcohol use No PHYSICAL EXAM BP 120/70 (BP Site: Left Arm, BP Position: Sitting, BP Cuff Size: Regular Adult) Pulse 84 Resp 16 Wt 77.1 kg (170 lb) BMI 31.09 kg/m? Appearance: well dressed well groomed, cooperative and pleasant Behavior: good eye contact Speech: fluent and coherent Mood: anxious Component Latest Ref Rng AND Units 11/11/2017 Protein, Total 6.3 - 8.0 g/dL 7.1 Albumin 3.9 - 4.9 g/dL 4.3 Calcium 8.5 - 10.2 mg/dL 9.4 Bilirubin, Total 0.2 - 1.3 mg/dL 0.3 Alkaline Phosphatase 32 - 117 U/L 94 AST 13 - 35 U/L 25 Glucose 74 - 99 mg/dL 105 (H) BUN 7 - 21 mg/dL 18 Creatinine 0.58 - 0.96 mg/dL 0.81 Sodium 136 - 144 mmol/L 139 Potassium 3.7 - 5.1 mmol/L 4.6 Chloride 97 - 105 mmol/L 101 CO2 22 - 30 mmol/L 25 Anion Gap 9 - 18 mmol/L 13 ALT 7 - 38 U/L 23 eGFR- >60 eGFR-All Other Races . >60 WBC 3.70 - 11.00 k/uL 7.43 RBC 3.90 - 5.20 m/uL 4.18 Hemoglobin 11.5 - 15.5 g/dL 12.2 Hematocrit 36.0 - 46.0 % 38.1 MCV 80.0 - 100.0 fL 91.1 MCH 26.0 - 34.0 pG 29.2 MCHC 30.5 - 36.0 g/dL 32.0 RDW-CV 11.5 - 15.0 % 13.6 Platelet Count 150 - 400 k/uL 367 MPV 9.0 - 12.7 fL 9.9 Absolute nRBC <0.01 k/uL <0.01 ALVIN Negative Negative ALVIN Titer Negative Negative ALVIN Pattern Not applicable for negative result. TSH 0.400 - 5.500 uU/mL 4.070 Free T4 0.9 - 1.7 ng/dL 1.0 Vitamin D 25 Hydroxy 31.0 - 80.0 ng/mL 32.8 WSR 0 - 20 mm/hr 17 CRP <0.9 mg/dL 1.7 (H) ASSESSMENT/PLAN: 1. Fatigue, unspecified type - ICD9: 780.79, ICD10: R53.83 (primary diagnosis) Etiology unclear, multiple possible etiologies Reviewed labs with patient and possible treatment options for pain relief Start Meloxicam. Discussed Cymbalta and Elavil, patient would like to hold off on those for now - CONSULT TO RHEUM/IMMUN DISEASE per patient request, plans on scheduling with Dr. Mendez Follow-up and labs as ordered by PCP 2. Myalgia - ICD9: 729.1, ICD10: M79.1 As above - CONSULT TO RHEUM/IMMUN DISEASE 3. Pain in joint involving multiple sites - ICD9: 719.49, ICD10: M25.50 As above - CONSULT TO RHEUM/IMMUN DISEASE Prescription instructions reviewed with patient as applicable. Potential red flag symptoms discussed with the patient. Reviewed appropriate action plan to take if red flag symptoms occur. Patient agreeable to treatment plan. During this patient visit I have spent approximately 20 minutes in counseling regarding treatment options, medications, test results and coordinating care. Janelle Taylor APRN.PROCESS CONTROL MANAGER Referring Provider: SELF [[id number]] Allergies As of Date: 12/01/2017 Noted Allergy Reaction RYE 12/01/2009 6 - Diarrhea WHEAT GLUTEN 05/03/2005 6 - Diarrhea Date Reviewed: 12/01/2017 Reviewed by: Miranda Hotte DINKEY DRIVER - Fully Assessed Reason for Visit: Fatigue [46] Cmt: Can't move Primary Visit Diagnosis:Fatigue, unspecified type [R53.83] Other Visit Diagnoses:Myalgia [M79.1] Pain in joint involving multiple sites [M25.50] Order(s):meloxicam (MOBIC) 15 mg tabletTake 1 tablet by mouth once daily. With food.Disp: 30 tabletRfl: 2 CONSULT TO RHEUM/IMMUN DISEASE [8769] Order #: [id number]: 1 Prescriptions as of 12/01/2017 Sig: CHOLECALCIFEROL (VITAMIN D3) * Take 2 tablets by mouth once * BACK BRACE QuickDraw * OMEGA-3 FATTY ACIDS 500 MG CA* Take one(1) capsule daily. St* * CALCIUM CARBONATE 600 MG (1,5* Take one(1) tablet daily. 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] INVALID FOR* Vitamin D deficiency [E55.9] INVALID FOR* Cholelithiasis [K80.20] INVALID FOR* Numbness of left foot [R20.8] INVALID FOR* Buttock pain [M79.1] INVALID FOR* Sacroiliac joint pain [M53.3] INVALID FOR* Lumbar strain [S39.012A] INVALID FOR* Lumbar radiculopathy [M54.16] INVALID FOR* 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 With food. Encounter Status:Closed by JANELLE TAYLOR CNP on 12/01/17 PROGRESS Observed: 11/17/2017 Status: COMPLETED Source: [place] 2:11 PM [facility] REPOSITORY HNO ID: [id number] Author: Leandra Gray Service: (none) Author Type: Physician Type: Progress Notes Filed: 11/27/2017 1:18 AM Note Text: HISTORY Shanita Hernandez is a 72 year old lady here for yearly exam and follow up appointment. Aching all over Frozen shoulder issue for years. Able to get arms up but hurts. 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 never resolves though improves. Hurts lateral hips when stands up. Trying to exercise when travels. Does stretching Was fine till 3 months ago. Was walking and really active. No illness 3 months ago. No cold or cough this past year (used to before). 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 Back Brace misc QuickDraw Walton-3 Fatty Acids (FISH OIL) 500 mg ORAL Cap Take one(1) capsule daily. Stopping 12/18/14 for surgery calcium carbonate 600 mg-cholecalciferol 200 units (CALCIUM 600 + D,3,) 600 mg(1,500mg) -200 unit ORAL Tab Take one(1) tablet daily. Stopped 12/18/14 for surgery albuterol HFA (VENTOLIN HFA) 90 mcg/actuation inhaler Inhale 2 Puffs as instructed every 6 hours as needed (coughing, wheezing). multivitamin tablet Take 1 tablet by mouth once daily. No current facility-administered medications for this visit. ALLERGIES Allergen Reactions - Hume Diarrhea - Wheat Gluten Diarrhea FAMILY HISTORY Problem Relation Age of Onset - Stroke Mother - Diabetes Mother DM type 2 in 80's to 90's - Diabetes Father DM type 2 in 80's to 90's - Thyroid Father - Breast Cancer Sister AT AGE 39 - Diabetes Maternal Grandmother - Diabetes Paternal Aunt - Diabetes Paternal Uncle x2 - Diabetes Other Maternal niece Type 1 - Thyroid Sister - Thyroid Sister Social History Marital status: Spouse name: Years of education: 12 Number of children: 2 Occupational History Occupation Employer Comment [employer] Social History Main Topics Smoking status: Never Smoker Smokeless tobacco: Never Used Alcohol use: No Drug use: No Sexual activity: Not Currently Partners with: Male Comment: Postmenopausal REVIEW OF SYSTEMS Aside from above, Constitutional, HEENT, CV, PULM, GI, , PSYCH, DERM, HEM/ONC, NEURO negative. PHYSICAL EXAMINATION: Blood pressure 126/72, pulse 88, resp. rate 12, height 157.5 cm (5' 2), weight 76.7 kg (169 lb). General appearance: well appearing, in no acute distress, well-hydrated, well nourished Skin: Skin color, texture, turgor normal. No significant rashes or lesions. Head: Normal Eyes: Anicteric sclera. Pupils are equally round and reactive to light. Extraocular movements are intact. Ears: External ears normal. Canals clear. TM's unremarkable. Nose/Sinuses: negative Oropharynx: Lips, mucosa, and tongue normal. Teeth and gums normal. Oropharynx normal. Neck: Neck supple, no adenopathy; thyroid symmetric, normal size, no bruits. Lungs: Lungs clear to auscultation Heart: negative. RRR without murmur, gallop, or rubs. No ectopy. Abdomen: Abdomen soft, non-tender. Bowel sounds normal. No masses, organomegaly Extremities: Extremities normal. No deformities, edema, or skin discoloration. Good capillary refill. Musculoskeletal: grossly normal Peripheral pulses: Normal Neuro: Gait normal. Reflexes normal and symmetric. Sensation grossly intact. No gross focal neurological deficits. Labs reviewed. ASSESSMENT AND PLAN See diagnoses and orders Encounter Diagnosis ICD-10-CM 1. Vitamin D deficiency E55.9 VITAMIN D 25 HYDROXY 2. Fatigue, unspecified type R53.83 TSH BLD T4 FREE/FREE THYROX VITAMIN D 25 HYDROXY C-REACTIVE PROTEIN (CRP) 3. Joint stiffness M25.60 TSH BLD T4 FREE/FREE THYROX VITAMIN D 25 HYDROXY C-REACTIVE PROTEIN (CRP) 4. Elevated C-reactive protein (CRP) R79.82 C-REACTIVE PROTEIN (CRP) Here for yearly exam and follow up appointment. Above issues addressed with patient. Patient involved in shared decision making for management of her medical issues. History and medications reviewed. Epic updated as needed Refills taken care of and meds adjusted as indicated after reviewed history, exam and labs. Health Maintenance reviewed. Updated record and/or ordered tests as recorded. Encouraged on efforts at healthy diet and regular exercise and adequate sleep. The majority of the visit was spent counseling and/or coordinating care for the patient. Fsys-jp-axpu time was at least 30 minutes. Leandra Gray MD CNOV Observed: 11/17/2017 Status: COMPLETED Source: ELON 1:40 PM [facility] Office Visit (INTMWS) SHANITA HERNANDEZ ([id number]) 1945 F [facility] Date Time Provider Department 11/17/17 1:40 PM LEANDRA GRAY INTMWS During your visit today, we recorded the following information about you: Pulse Respiration Blood pressure Weight 88/minute 12/minute 126/72 76.7 kg Height 1.575 m Leandra Gray MD 11/27/2017 1:18 AM Signed HISTORY Shanitalatha Hernandez is a 72 year old lady here for yearly exam and follow up appointment. Aching all over Frozen shoulder issue for years. Able to get arms up but hurts. 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 never resolves though improves. Hurts lateral hips when stands up. Trying to exercise when travels. Does stretching Was fine till 3 months ago. Was walking and really active. No illness 3 months ago. No cold or cough this past year (used to before). 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 Back Brace misc QuickDraw Walton-3 Fatty Acids (FISH OIL) 500 mg ORAL Cap Take one(1) capsule daily. Stopping 12/18/14 for surgery calcium carbonate 600 mg-cholecalciferol 200 units (CALCIUM 600 + D,3,) 600 mg(1,500mg) -200 unit ORAL Tab Take one(1) tablet daily. Stopped 12/18/14 for surgery albuterol HFA (VENTOLIN HFA) 90 mcg/actuation inhaler Inhale 2 Puffs as instructed every 6 hours as needed (coughing, wheezing). multivitamin tablet Take 1 tablet by mouth once daily. No current facility-administered medications for this visit. ALLERGIES Allergen Reactions - Hume Diarrhea - Wheat Gluten Diarrhea FAMILY HISTORY Problem Relation Age of Onset - Stroke Mother - Diabetes Mother DM type 2 in 80's to 90's - Diabetes Father DM type 2 in 80's to 90's - Thyroid Father - Breast Cancer Sister AT AGE 39 - Diabetes Maternal Grandmother - Diabetes Paternal Aunt - Diabetes Paternal Uncle x2 - Diabetes Other Maternal niece Type 1 - Thyroid Sister - Thyroid Sister Social History Marital status: Spouse name: Years of education: 12 Number of children: 2 Occupational History Occupation Employer Comment [employer] Social History Main Topics Smoking status: Never Smoker Smokeless tobacco: Never Used Alcohol use: No Drug use: No Sexual activity: Not Currently Partners with: Male Comment: Postmenopausal REVIEW OF SYSTEMS Aside from above, Constitutional, HEENT, CV, PULM, GI, , PSYCH, DERM, HEM/ONC, NEURO negative. PHYSICAL EXAMINATION: Blood pressure 126/72, pulse 88, resp. rate 12, height 157.5 cm (5' 2), weight 76.7 kg (169 lb). General appearance: well appearing, in no acute distress, well-hydrated, well nourished Skin: Skin color, texture, turgor normal. No significant rashes or lesions. Head: Normal Eyes: Anicteric sclera. Pupils are equally round and reactive to light. Extraocular movements are intact. Ears: External ears normal. Canals clear. TM's unremarkable. Nose/Sinuses: negative Oropharynx: Lips, mucosa, and tongue normal. Teeth and gums normal. Oropharynx normal. Neck: Neck supple, no adenopathy; thyroid symmetric, normal size, no bruits. Lungs: Lungs clear to auscultation Heart: negative. RRR without murmur, gallop, or rubs. No ectopy. Abdomen: Abdomen soft, non-tender. Bowel sounds normal. No masses, organomegaly Extremities: Extremities normal. No deformities, edema, or skin discoloration. Good capillary refill. Musculoskeletal: grossly normal Peripheral pulses: Normal Neuro: Gait normal. Reflexes normal and symmetric. Sensation grossly intact. No gross focal neurological deficits. Labs reviewed. ASSESSMENT AND PLAN See diagnoses and orders Encounter Diagnosis ICD-10-CM 1. Vitamin D deficiency E55.9 VITAMIN D 25 HYDROXY 2. Fatigue, unspecified type R53.83 TSH BLD T4 FREE/FREE THYROX VITAMIN D 25 HYDROXY C-REACTIVE PROTEIN (CRP) 3. Joint stiffness M25.60 TSH BLD T4 FREE/FREE THYROX VITAMIN D 25 HYDROXY C-REACTIVE PROTEIN (CRP) 4. Elevated C-reactive protein (CRP) R79.82 C-REACTIVE PROTEIN (CRP) Here for yearly exam and follow up appointment. Above issues addressed with patient. Patient involved in shared decision making for management of her medical issues. History and medications reviewed. Epic updated as needed Refills taken care of and meds adjusted as indicated after reviewed history, exam and labs. Health Maintenance reviewed. Updated record and/or ordered tests as recorded. Encouraged on efforts at healthy diet and regular exercise and adequate sleep. The majority of the visit was spent counseling and/or coordinating care for the patient. Kheg-dg-vmju time was at least 30 minutes. MD Leandra Shaikh MD 11/17/2017 2:35 PM Signed May take Vitamin D3 alternating 3000 IU with 5000 IU per day. Recheck Vitamin D and thyroid levels and CRP in about 2 months to see if improving or not. Referring Provider: SELF [200] Allergies As of Date: 11/17/2017 Noted Allergy Reaction RYE 12/01/2009 6 - Diarrhea WHEAT GLUTEN 05/03/2005 6 - Diarrhea Date Reviewed: 11/17/2017 Reviewed by: Sarah Obrien LPN - Fully Assessed Reason for Visit: Yearly Exam [187] Primary Visit Diagnosis:Vitamin D deficiency [E55.9] Other Visit Diagnoses:Fatigue, unspecified type [R53.83] Joint stiffness [M25.60] Elevated C-reactive protein (CRP) [R79.82] Order(s):TSH BLD [SQTSH] Order #: [id number] FUTURE T4 FREE/FREE THYROX [SQFT4] Order #: [id number] FUTURE VITAMIN D 25 HYDROXY [SQVITD] Order #: [id number] FUTURE C-REACTIVE PROTEIN (CRP) [SQCRP] Order #: [id number] FUTURE Prescriptions as of 11/17/2017 Sig: CHOLECALCIFEROL (VITAMIN D3) * Take 2 tablets by mouth once * BACK BRACE QuickDraw * OMEGA-3 FATTY ACIDS 500 MG CA* Take one(1) capsule daily. St* * CALCIUM CARBONATE 600 MG (1,5* Take one(1) tablet daily. Sto* ALBUTEROL SULFATE HFA 90 MCG/* Inhale 2 Puffs as instructed * MULTIVITAMIN TABLET Take 1 tablet by mouth once d* Medication notes this encounter ALBUTEROL SULFATE HFA 90 MCG/ACTUATION AEROSOL INHALER >> Sarah Obrien LPN 11/17/2017 1:47 PM >> SARAH OBRIEN LPN MonNov 17, 2017 1:47 PM Course of therapy completed. 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] INVALID FOR* Vitamin D deficiency [E55.9] INVALID FOR* Cholelithiasis [K80.20] INVALID FOR* Numbness of left foot [R20.8] INVALID FOR* Buttock pain [M79.1] INVALID FOR* Sacroiliac joint pain [M53.3] INVALID FOR* Lumbar strain [S39.012A] INVALID FOR* Lumbar radiculopathy [M54.16] INVALID FOR* Lumbar disc herniation [M51.26] INVALID FOR* Osteopenia [M85.80] Other specified anemias [D64.89] External hemorrhoids without mention of complic* AK (actinic keratosis) [L57.0] Actinic skin damage [L57.8] 02/23/2016 Other instructions from your clinician: May take Vitamin D3 alternating 3000 IU with 5000 IU per day. Recheck Vitamin D and thyroid levels and CRP in about 2 months to see if improving or not. Disposition: Return in about 1 year (around 11/17/2018), or if symptoms worsen or fail to improve, for Yearly exam and follow up (40 min). Follow-up and Disposition History Recorded Encounter Status:Closed by LEANDRA GRAY MD on 11/27/17 FREE T4 Collected: 11/11/2017 Status: F Source: ELON 9:59 AM [facility] TYPE CODE TESTS RESULT OUT OF RANGE REFERENCE UNITS LAB FT4 0.9-1.7 ng/dL Free T4 1.0 Performed By: #### FT4, CMP, CRP, TSH, CBC, VITD, WSR, ANAIFS #### [facility] [address] [place] [address] COMP METABOLIC PANEL Collected: 11/11/2017 Status: F Source: ELON 9:59 AM [facility] TYPE CODE TESTS RESULT OUT OF REFERENCE UNITS RANGE LAB TP 6.3-8.0 g/dL Protein, Total 7.1 LAB ALB 3.9-4.9 g/dL Albumin 4.3 LAB CA 8.5-10.2 mg/dL Calcium, Total 9.4 LAB TBIL 0.2-1.3 mg/dL Bilirubin, Total 0.3 LAB ALKP 32-117 U/L Alkaline Phosphatase 94 LAB AST 13-35 U/L AST 25 LAB GLU 74-99 mg/dL Glucose High 105 Result Comment: The [place] Diabetes Association (ADA) provides guidance for cutoff values for fasting glucose and random glucose. The ADA defines fasting as no caloric intake for at least 8 hours. Fas ting plasma glucose results between 100 to 125 mg/dL indicate increased risk for diabetes (prediabetes). Fasting plasma glucose results greater than or equal to 126 mg/dL meet the criteria for diagnosis of diabetes. In the absence of unequivocal hyperglycemia, results should be confirmed by repeat testing. In a patient with classic symptoms of hyperglycemia or hyperglycemic crisis, random plasma glucose results greater than or equal to 200 mg/dL meet the criteria for diagnosis of diabetes. Reference: Standards of Medical Care in Diabetes 2016, [place] Diabetes Association. Diabetes Care. 2016.39(Suppl 1). LAB BUN 7-21 mg/dL BUN 18 LAB CRET 0.58-0.96 mg/dL Creatinine 0.81 LAB NA 136-144 mmol/L Sodium 139 LAB K 3.7-5.1 mmol/L Potassium 4.6 LAB CL 97-105 mmol/L Chloride 101 LAB CO2 22-30 mmol/L CO2 25 LAB AGAP 9-18 mmol/L Anion Gap 13 LAB ALT 7-38 U/L ALT 23 LAB GFRAA eGFR- Amer. >60 LAB GFRNAA . eGFR-All Other Races >60 Result Comment: eGFR (Estimated GFR) Units of measure: mL/min/1.73 meters squared eGFR is derived from the reexpressed MDRD Study equation using the following parameters: serum creatinine, age, gender and race. The creatinine assay has been calibrated to be traceable to IDMS. An eGFR <60 mL/min/1.73m2 for >3 months is consistent with chronic kidney disease. Refer to KDOQI guidelines for clinical interpretation. In patients with unstable renal function, e.g. those with acute kidney injury, the eGFR may not accurately reflect actual GFR. Performed By: #### FT4, CMP, CRP, TSH, CBC, VITD, WSR, ANAIFS #### [facility] [employer] [address] [place], [place] [address] C-REACTIVE PROTEIN Collected: 11/11/2017 Status: F Source: ELON 9:59 AM [facility] TYPE CODE TESTS RESULT OUT OF REFERENCE UNITS RANGE LAB CRP <0.9 mg/dL High C-Reactive 1.7 Protein Performed By: #### FT4, CMP, CRP, TSH, CBC, VITD, WSR, ANAIFS #### [facility] [employer] [address] [place], [place] [id number] TSH Collected: 11/11/2017 Status: F Source: ELON 9:59 AM [facility] TYPE CODE TESTS RESULT OUT OF RANGE REFERENCE UNITS LAB TSH 0.400-5.500 uU/mL TSH 4.070 Performed By: #### FT4, CMP, CRP, TSH, CBC, VITD, WSR, ANAIFS #### [facility] [employer] [address] [place], [place] [address] CBC Collected: 11/11/2017 Status: F Source: ELON 9:59 AM [facility] TYPE CODE TESTS RESULT OUT OF REFERENCE UNITS RANGE LAB WBC 3.70-11.00 k/uL WBC 7.43 LAB RBC 3.90-5.20 m/uL RBC 4.18 LAB HGB 11.5-15.5 g/dL Hemoglobin 12.2 LAB HCT 36.0-46.0 % Hematocrit 38.1 LAB MCV 80.0-100.0 fL MCV 91.1 LAB MCH 26.0-34.0 pG MCH 29.2 LAB MCHC 30.5-36.0 g/dL MCHC 32.0 LAB RDWCV 11.5-15.0 % RDW-CV 13.6 LAB PLTCT 150-400 k/uL Platelet Count 367 LAB MPV 9.0-12.7 fL MPV 9.9 LAB ABSNUC <0.01 k/uL Absolute nRBC <0.01 Performed By: #### FT4, CMP, CRP, TSH, CBC, VITD, WSR, ANAIFS #### [facility] [employer] [address] [place], [place] [address] VITAMIN D 25 HYDROXY Collected: 11/11/2017 Status: F Source: ELON 9:59 [facility] REPOSITORY TYPE CODE TESTS RESULT OUT OF REFERENCE UNITS RANGE LAB VITD 31.0-80.0 ng/mL Vitamin D 25 32.8 Hydroxy Result Comment: Classification of 25 [place] Vitamin D status: Insufficiency/Moderate Deficiency: < or = 30 ng/mL Sufficiency/Optimal Levels: 31 to 80 ng/mL Toxicity: > 100 ng/mL Test performed by chemiluminescent immunoassay. Performed By: #### FT4, CMP, CRP, TSH, CBC, VITD, WSR, ANAIFS #### [facility] [employer] [address] [place], [place] [address] SED RATE WESTERGREN Collected: 11/11/2017 Status: F Source: ELON 9:59 AM [facility] TYPE CODE TESTS RESULT OUT OF REFERENCE UNITS RANGE LAB WSR 0-20 mm/hr Sed Rate Westergren 17 Performed By: #### FT4, CMP, CRP, TSH, CBC, VITD, WSR, ANAIFS #### [facility] [address] [place], [place] [address] ALVIN BY IFA Collected: 11/11/2017 Status: F Source: ELON 9:59 AM [facility] TYPE CODE TESTS RESULT OUT OF REFERENCE UNITS RANGE LAB ANASC Negative ALVIN Negative Result Comment: Normal range : negative at <1:80 serum dilution. Approximately 6% of patients with connective tissue diseases with low positive EIA values are negative by IFA. Recommend follow-up with specific antinuclear antibodies if clinically indicated. LAB ANTHONY Negative Negative ALVIN Titer Result Comment: Normal range : negative at <1:80 serum dilution. LAB ANAP ALVIN Not applicable Pattern for negative result. Performed By: #### FT4, CMP, CRP, TSH, CBC, VITD, WSR, ANAIFS #### [facility] [address] [place], [place] [address] CNCO Observed: 05/17/2017 Status: COMPLETED Source: ELON 12:47 PM [facility] HNO ID: [id number] Author: Mammography Coordinator Service: (none) Author Type: Physician Type: Letter Filed: 05/18/2017 11:32 PM Note Text: May 17, 2017 PID: [id number] Shanita Hernandez [address] [place] [address] Dear Ms. Hernandez, We are pleased to inform you that the results of your recent breast imaging exam on 05/16/2017 are normal. Your mammogram demonstrates that you have dense breast tissue, which could hide abnormalities. Dense breast tissue, in and of itself, is a relatively common condition. Therefore, this information is not provided to cause undue concern; rather, it is to raise your awareness and promote discussion with your health care provider regarding the presence of dense breast tissue in addition to other risk factors. Early detection of cancer is very important. We also understand recommendations regarding breast cancer screening are controversial. Please discuss with your primary care provider which strategy is best for you and whether a mammogram is right for you. Your imaging studies and report will be kept on file at [facility] as part of your permanent medical record and are available for your continuing care. Thank you for allowing us to help in meeting your health care needs. Sincerely, Dr. Raman Interpreting Radiologist [facility] (Normal over 40) SARIKA DIG SCREEN CAD Observed: 05/16/2017 Status: F Source: ELON NAKIA 4:35 PM [facility] * * *Final Report* * * DATE OF EXAM: May 16 2017 4:35PM WOW [id number] - [facility] DIG SCREEN CAD NAKIA - BILATERAL / PROCEDURE REASON: Encounter for screening mammogram for malignant neoplasm of breast * * * * Physician Interpretation * * * * RESULT: #[id number] - SARIKA DIG SCREEN CAD NAKIA BILATERAL DIGITAL SCREENING MAMMOGRAM WITH CAD: 05/16/2017 HISTORY: Encounter For Screening Mammogram For Malignant Neoplasm Of Breast\ Screening Mammogram - patient reports NO breast symptoms /priors available for comparison. RESULT: TECHNIQUE: The study was acquired using full field digital technology and interpreted from soft copy. Current study was also evaluated with a Computer Aided Detection (CAD). Comparison is made to exams dated: 02/23/2016 mammogram, 02/17/2015 mammogram, 02/13/2014 mammogram, 01/11/2013 mammogram, and 01/11/2012 mammogram - [facility]. The tissue of both breasts is heterogeneously dense. This may lower the sensitivity of mammography. No significant masses, calcifications, or other findings are seen in either breast. There has been no significant interval change. IMPRESSION: NEGATIVE There is no mammographic evidence of malignancy.A 1 year screening mammogram is recommended. Cristal Raman M.D., jr/rebeka:05/17/2017 12:47:05 Insole Tacker: Geovanna WANG)([place]), [facility] letter sent: Normal over 40 Mammogram BI-RADS: 1 Negative Acquisition Manager: Rebeka Transcribe Date/Time: May 16 2017 4:36P Dictated by: CRISTAL RAMAN MD This examination was interpreted and the report reviewed and electronically signed by: CRISTAL RAMAN MD on May 17 2017 12:47PM NOLBERTO HODGES Observed: 05/16/2017 Status: COMPLETED Source: ELON 3:50 PM [facility] Office Visit (WOOB) SHANITA HERNANDEZ ([id number]) 1945 F Date Time Provider Department 05/16/17 3:50 PM ORI WANG WOJUDE During your visit today, we recorded the following information about you: Blood pressure Weight Height 134/82 78 kg 1.575 m Ori Wang MD 05/16/2017 4:19 PM Signed Shanita Hernandez is a 71 year old who presents for her annual gynecologic exam without complaints. Postmenopausal: yes HRT use: No. 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 - External hemorrhoids without mention of complication - Osteopenia - Other specified anemias PAST SURGICAL HISTORY Procedure Laterality Date - BONE MARROW FOR ANEMIA HISTORY - BUNIONECTOMY, LAPIDUS-TYPE 12/21/12 Right foot - CHG COSMETIC SURGERY 1 HOUR 1996 - COLONOSCOP W/ OR W/O BRS SPEC 1996 Colonoscopy - COLONOSCOP W/ OR W/O BRSH SPEC 07/16/09 - EGD W/O BRSH SPECIMEN W/BX 07/16/09 - EXCIS PRIMARY GANGLION WRIST right - KNEE SCOPE,DIAGNOSTIC 12/21/09 Arthroscopy, knee, right, CC, Herbie Lacey MD - KNEE SCOPE,MED+LAT MENIS REPAIR 11/28/12 FAMILY HISTORY Problem Relation Age of Onset - Breast Cancer Sister AT AGE 39 - Diabetes Maternal Grandmother - Diabetes Paternal Aunt - Diabetes Paternal Uncle x2 - Stroke Mother - Diabetes Mother DM type 2 in 80's to 90's - Diabetes Father DM type 2 in 80's to 90's - Diabetes Other Maternal niece Type 1 - Thyroid Father - Thyroid Sister - Thyroid Sister SOCIAL HISTORY Social History Substance Use Topics - Smoking status: Never Smoker - Smokeless tobacco: Never Used - Alcohol use No REVIEW OF SYSTEMS Abdomen: No abdominal pain, nausea, vomiting, diarrhea, or constipation. No bloating, early satiety, indigestion, or increased flatulence. Bladder: No dysuria, gross hematuria, urinary frequency, urinary urgency, or incontinence Breast: No breast lumps, nipple d/c, overlying skin changes, redness or skin retraction Allergies and current medication updated:Yes EXAM: There were no vitals taken for this visit. GENERAL: pleasant, female in no apparent distress HEENT: Normocephalic, atraumatic, mucus membranes moist and no lesions NECK: Supple, full range of motion, no adenopathy and thyroid normal DERMATOLOGY: Normal, without lesions, non-icteric and non-hirsute BREAST: soft, non-tender, symmetric, no dominant mass, normal nipple-areolar complex, no lymphadenopathy and no nipple discharge CHEST: Normal inspiratory effort ABDOMEN: soft, non-tender and no masses PELVIC: external genitalia normal, normal Bartholin's glands, urethra, Epworth's glands, no vulvar lesions, no cervical lesions, physiologic discharge present, normal appearing perineal body and perianal region, cystocele 1st degree, rectocele 1st degree, cervical prolapse 1st degree BIMANUAL: uterus normal size, shape and consistency, no adnexal masses and non-tender RECTOVAGINAL: rectovaginal exam negative for any masses or nodularity. NEURO: alert and oriented x3,exam grossly non-focal EXTREMITIES: normal ASSESSMENT/PLAN: 1) Health maintenance: Pap/HPV screening no longer needed Mammogram ordered Colon cancer screening: up to date with screening 2) Follow up one year or sooner as needed Ori Wang MD Referring Provider: SELF [200] Allergies As of Date: 05/16/2017 Noted Allergy Reaction RYE 12/01/2009 6 - Diarrhea WHEAT GLUTEN 05/03/2005 6 - Diarrhea Date Reviewed: 05/16/2017 Reviewed by: Ori Wang - Fully Assessed Primary Visit Diagnosis:Encounter for gynecological examination (general) (routine) without abnormal findings [Z01.419] Other Visit Diagnosis:Encounter for screening mammogram for breast cancer [Z12.31] Order(s):[facility] SCREENING [[id number]] Order #: [id number] FUTURE Prescriptions as of 05/16/2017 Sig: ALBUTEROL SULFATE HFA 90 MCG/* Inhale 2 Puffs as instructed * Patient not taking: Reported on 05/16/2017 CHOLECALCIFEROL (VITAMIN D3) * Take 2 tablets by mouth once * MULTIVITAMIN TABLET Take 1 tablet by mouth once d* BACK BRACE QuickDraw * OMEGA-3 FATTY ACIDS 500 MG CA* Take one(1) capsule daily. St* * CALCIUM CARBONATE 600 MG (1,5* Take one(1) tablet daily. 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 Follow-up and Disposition History Recorded Encounter Status:Closed by ORI WANG MD on 05/16/17 PROGRESS Observed: 05/16/2017 Status: COMPLETED Source: ELON 3:44 PM [facility] O ID: [id number] Author: Ori Wang Service: (none) Author Type: Physician Type: Progress Notes Filed: 05/16/2017 4:19 PM Note Text: Shanita Hernandez is a 71 year old who presents for her annual gynecologic exam without complaints. Postmenopausal: yes HRT use: No. 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 - External hemorrhoids without mention of complication - Osteopenia - Other specified anemias PAST SURGICAL HISTORY Procedure Laterality Date - BONE MARROW FOR ANEMIA HISTORY - BUNIONECTOMY, LAPIDUS-TYPE 12/21/12 Right foot - CHG COSMETIC SURGERY 1 HOUR 1996 - COLONOSCOP W/ OR W/O BRS SPEC 1996 Colonoscopy - COLONOSCOP W/ OR W/O BRSH SPEC 07/16/09 - EGD W/O BRSH SPECIMEN W/BX 07/16/09 - EXCIS PRIMARY GANGLION WRIST right - KNEE SCOPE,DIAGNOSTIC 12/21/09 Arthroscopy, knee, right, CC, Herbie Lacey MD - KNEE SCOPE,MED+LAT MENIS REPAIR 11/28/12 FAMILY HISTORY Problem Relation Age of Onset - Breast Cancer Sister AT AGE 39 - Diabetes Maternal Grandmother - Diabetes Paternal Aunt - Diabetes Paternal Uncle x2 - Stroke Mother - Diabetes Mother DM type 2 in 80's to 90's - Diabetes Father DM type 2 in 80's to 90's - Diabetes Other Maternal niece Type 1 - Thyroid Father - Thyroid Sister - Thyroid Sister SOCIAL HISTORY Social History Substance Use Topics - Smoking status: Never Smoker - Smokeless tobacco: Never Used - Alcohol use No REVIEW OF SYSTEMS Abdomen: No abdominal pain, nausea, vomiting, diarrhea, or constipation. No bloating, early satiety, indigestion, or increased flatulence. Bladder: No dysuria, gross hematuria, urinary frequency, urinary urgency, or incontinence Breast: No breast lumps, nipple d/c, overlying skin changes, redness or skin retraction Allergies and current medication updated:Yes EXAM: There were no vitals taken for this visit. GENERAL: pleasant, female in no apparent distress HEENT: Normocephalic, atraumatic, mucus membranes moist and no lesions NECK: Supple, full range of motion, no adenopathy and thyroid normal DERMATOLOGY: Normal, without lesions, non-icteric and non-hirsute BREAST: soft, non-tender, symmetric, no dominant mass, normal nipple-areolar complex, no lymphadenopathy and no nipple discharge CHEST: Normal inspiratory effort ABDOMEN: soft, non-tender and no masses PELVIC: external genitalia normal, normal Bartholin's glands, urethra, Epworth's glands, no vulvar lesions, no cervical lesions, physiologic discharge present, normal appearing perineal body and perianal region, cystocele 1st degree, rectocele 1st degree, cervical prolapse 1st degree BIMANUAL: uterus normal size, shape and consistency, no adnexal masses and non-tender RECTOVAGINAL: rectovaginal exam negative for any masses or nodularity. NEURO: alert and oriented x3,exam grossly non-focal EXTREMITIES: normal ASSESSMENT/PLAN: 1) Health maintenance: Pap/HPV screening no longer needed Mammogram ordered Colon cancer screening: up to date with screening 2) Follow up one year or sooner as needed Ori Wang MD ALLERGIES ALLERGIES DATE TYPE / CODE NAME / CODE REACTION SEVERITY SOURCE 09/16/2014 Drug No Known Unknown [facility] Allergy/4160 Allergies/F001 [facility] 47795(SNOMED 492508(RXNORM) Repository CT) 12/01/2009 Food/[id number] RYE DIARRHEA [facility] 00(SNOMED [place]) Repository 05/03/2005 Food/[id number] WHEAT GLUTEN DIARRHEA [facility] 00(SNOMED [place]) Repository Food/[id number] [facility] 00([facility] [place]) System Repository ENCOUNTERS ENCOUNTERS ADMIT/DISCHARGE ACCOUNT NUMBER ADMITTING ENCOUNTER LOCATION SOURCE CLASS 04/28/2018 [id number] Ambulatory [facility] ding:LAB Repository 03/02/2018/03/29/20 [id number] [place] [facility] 18 [address] [facility] ding:.[facility] B Repository 03/02/2018 [id number] Ambulatory [address] [place] [address] Repository 01/24/2018/02/13/20 [id number] Ambulatory [place] [address] [facility] [place] Repository 01/10/2018/01/11/20 [id number] Ambulatory [address] Repository 12/29/2017 [id number] Ambulatory Toshia Toshia [facility] ding:MTLAB Repository 12/01/2017/12/05/19 [id number] Ambulatory [address] Repository 11/17/2017/11/29/19 [id number] Ambulatory [address] Repository 11/11/2017/11/12/19 [id number] Ambulatory [address] Repository 05/16/2017/05/16/20 [id number] Ambulatory [address] Repository 05/16/2017/05/18/20 [id number] Ambulatory [address] Repository PAYERS PAYERS ENCOUNTER GUARANTOR PAYER SUBSCRIBER SOURCE 04/28/2018 SHANITA J Primary SHANITA J Toshia [id number] Insurance:AETNAPolicy GEISERDOB: [facility] [place]: [id number] [id number] Repository [id number]: [phone]) Date:[phone] () [id number] [place] [phone]: 04/28/2018 Secondary NOT [facility]r. [facility] Insurance:SELF PAY [facility] Number: Effective Repository Date:2018-04-28 03/02/2018 SHANITA J Primary SHANITA J [facility] GEISERDOB: Insurance:AETNAPolicy GEISERDOB: [facility] [id number] Number: Effective [id number] System VARSHA DRTel: Date:2018-02-12 VARSHA DRTel: Repository [id number] (HP) Name:CD:[id number] BOX (HP)Tel: [phone] ELKINS [phone] (BR) [id number]: 03/02/2018 SHANITA GEISERDOB: Primary SHANITA GEISERDOB: [place] [id number]: [id number] Number: Repository () [id number] Date:Plan Name:Health 12/29/2017 SHANITA J Primary SHANITA J Toshia [id number] [facility] [place]: [id number] [id number] Repository [address]Thk: 330 Date:[id number] [phone] () [id number] [place] [phone]: 12/29/2017 Secondary NOT GIVENUNK Winifred Insurance:SELF PAY [facility] Number: Effective Repository Date:2017-12-29
== END ==
PROVIDERS: Family Provider Internal Medicine; PCP Internal Medicine; Referring Provider Internal Medicine Rheumatology; Visit Provider Internal Medicine Rheumatology
DX: M06.4 Inflammatory polyarthropathy (principal); K90.0 Celiac disease; J45.909 Unspecified asthma, uncomplicated; Z87.19 Personal history of other diseases of the digestive system
CPT/HCPCS: 36415; 80053; 85025

== ENCOUNTER → 2018-10-31 | Outpatient (CLI) | payer OTHER, SELFPAY ==
[2014-09-16 17:06] VITALS: BMI 28.3
[2018-10-31 17:49] LABS: Absolute Lymphocyte Count 1.46 X10^3/ul (0.83-4.51); Absolute Neutrophil Count 3.4 X10^3/uL (2.0-7.7); Basophil# 0.03 X10^3/uL; Basophil% 0.5 % (0-1); Eosinophil# 0.12 X10^3/uL; Eosinophils% 2.1 % (0-5); Hemoglobin 11.8 g/dl (12.0-15.0); Lymphocyte # 1.46 X10^3/ul (4.0); Mean Corp Hgb Conc 32.8 g/gl (32-36); Mean Corpuscular Hgb 29.4 pg (27.0-32.0); Mean Corpuscular Volume 89.8 fL (81-99); Mean Platelet Vol. 10.9 fl (6.2-12.0); Monocyte# 0.56 X10^3/uL; Neutrophil # 3.43 X10^3/uL (2.7-7.7); Neutrophil % 61.2 % (47-70); Platelet Count 256 K/mm3 (150-450); RBC Distribution Width CV 13.5 % (11.6-14.6); RBC Distribution Width SD 43.7 fl (35.1-43.9); Red Blood Count 4.01 M/mm3 (4.2-5.4); White Blood Count 5.6 K/mm3 (4.4-11.0)
[2018-10-31 17:58] LABS: POSITIVE COUNT NO; POSITIVE DIFFERENTIAL NO; POSITIVE MORPHOLOGY NO; Vitamin D,25 Hydroxy 27.2 ng/mL (29.95-100.01)
[2018-10-31 18:05] LABS: AST(SGOT) 23 U/L (15-37); Alanine Aminotransfer ALT/SGPT 36 U/L (13-56); Albumin, Serum 3.9 g/dL (3.2-5.0); Alkaline Phosphatase 86 U/L (45-117); Anion Gap 9 (5-15); BUN 21 mg/dL (7-18); BUN/Creat Ratio 22.6 RATIO (10-20); CRP, High Sensitivity Cardiac 5.87 mg/L; Calcium,Total 8.7 mg/dL (8.5-10.1); Chloride 106 mmol/L (98-107); Creatinine, Serum 0.93 mg/dL (0.55-1.02); EST Glomerular Filtration Rate 63 mL/min (>60); Est Glom Filt Rate - Afr Amer 76 mL/min (>60); Globulin 3.8 g/dL (2.2-4.2); Glucose 88 mg/dL (74-106); Potassium 4.3 mmol/L (3.5-5.1); Protein, Total 7.7 g/dL (6.4-8.2); Sodium Level 140 mmol/L (136-145); T4 Free Direct 0.95 ng/dL (0.76-1.46)
== END | disposition home or self-care (01) ==
LOC: MTLAB 15:34
PROVIDERS: Family Provider Internal Medicine; PCP Internal Medicine; Referring Provider Internal Medicine; Visit Provider Internal Medicine
DX: M06.4 Inflammatory polyarthropathy (principal); K90.0 Celiac disease; J45.909 Unspecified asthma, uncomplicated; M17.10 Unilateral primary osteoarthritis, unspecified knee; E55.9 Vitamin D deficiency, unspecified; M54.16 Radiculopathy, lumbar region; Z87.19 Personal history of other diseases of the digestive system
CPT/HCPCS: 36415; 80053; 82306; 84439; 84443; 85025; 86141

== ENCOUNTER → 2019-04-16 | Outpatient (CLI) | payer OTHER, SELFPAY ==
[2014-09-16 17:06] VITALS: BMI 28.3
[2019-04-16 10:06] LABS: Absolute Neutrophil Count 2.5 X10^3/uL (2.0-7.7); Basophil# 0.04 X10^3/uL; Basophil% 0.8 % (0-1); Eosinophil# 0.16 X10^3/uL; Eosinophils% 3.3 % (0-5); Hemoglobin 11.9 g/dL (12.0-15.0); Mean Corp Hgb Conc 32.2 g/dL (32-36); Mean Corpuscular Hgb 29.8 pg (27.0-32.0); Mean Corpuscular Volume 92.5 fL (81-99); Mean Platelet Vol. 10.4 fl (6.2-12.0); Monocyte# 0.45 X10^3/uL; Monocyte% 9.3 % (0-10); NRBC Flagged by Analyzer 0 % (0-5); Neutrophil % 51.4 % (47-70); Platelet Count 254 K/mm3 (150-450); RBC Distribution Width CV 12.7 % (11.6-14.6); RBC Distribution Width SD 43.1 fl (35.1-43.9); White Blood Count 4.9 K/mm3 (4.4-11.0)
[2019-04-16 10:21] LABS: ALB/GLOB Ratio 1.1 RATIO (0.9-2.4); AST(SGOT) 16 U/L (15-37); Alanine Aminotransfer ALT/SGPT 29 U/L (13-56); Albumin, Serum 3.9 g/dL (3.2-5.0); Alkaline Phosphatase 85 U/L (45-117); Anion Gap 3 (5-15); BUN 19 mg/dL (7-18); Calcium,Total 8.9 mg/dL (8.5-10.1); Chloride 108 mmol/L (98-107); Creatinine, Serum 0.86 mg/dL (0.55-1.02); EST Glomerular Filtration Rate 69 mL/min (>60); Est Glom Filt Rate - Afr Amer 83 mL/min (>60); Globulin 3.4 g/dL (2.2-4.2); Glucose 102 mg/dL (74-106); Potassium 4.1 mmol/L (3.5-5.1); Protein, Total 7.3 g/dL (6.4-8.2); Sodium Level 140 mmol/L (136-145)
== END | disposition home or self-care (01) ==
LOC: MTLAB 07:09
PROVIDERS: Family Provider Internal Medicine; PCP Internal Medicine; Referring Provider Internal Medicine Rheumatology; Visit Provider Internal Medicine Rheumatology
DX: M06.4 Inflammatory polyarthropathy (principal); K90.0 Celiac disease; J45.909 Unspecified asthma, uncomplicated; Z87.19 Personal history of other diseases of the digestive system
CPT/HCPCS: 36415; 80053; 85025

== ENCOUNTER → 2019-10-16 08:45 | Outpatient (CLI) | payer OTHER, SELFPAY ==
[2014-09-16 17:06] VITALS: BMI 28.3
[2019-10-16 10:23] LABS: Absolute Lymphocyte Count 1.31 X10^3/uL (0.83-4.51); Absolute Neutrophil Count 2.5 X10^3/uL (2.0-7.7); Basophil# 0.04 X10^3/uL; Basophil% 0.9 % (0-1); Eosinophil# 0.12 X10^3/uL; Eosinophils% 2.7 % (0-5); Hemoglobin 12.3 g/dL (12.0-15.0); Lymphocyte # 1.31 X10^3/ul (4.0); Lymphocyte % 29.8 % (19-41); Mean Corp Hgb Conc 32.4 g/dL (32-36); Mean Corpuscular Hgb 30.3 pg (27.0-32.0); Mean Corpuscular Volume 93.6 fL (81-99); Mean Platelet Vol. 10.1 fl (6.2-12.0); Monocyte# 0.42 X10^3/uL; Monocyte% 9.5 % (0-10); NRBC Flagged by Analyzer 0 % (0-5); Neutrophil % 56.9 % (47-70); Platelet Count 265 K/mm3 (150-450); RBC Distribution Width CV 12.9 % (11.6-14.6); RBC Distribution Width SD 44.1 fl (35.1-43.9); Red Blood Count 4.06 M/mm3 (4.2-5.4); White Blood Count 4.4 K/mm3 (4.4-11.0)
[2019-10-16 10:49] LABS: ALB/GLOB Ratio 1.1 RATIO (0.9-2.4); AST(SGOT) 16 U/L (15-37); Alanine Aminotransfer ALT/SGPT 25 U/L (13-56); Albumin, Serum 3.9 g/dL (3.2-5.0); Alkaline Phosphatase 94 U/L (45-117); Anion Gap 5 (5-15); BUN 20 mg/dL (7-18); CRP, High Sensitivity Cardiac 5.38 mg/L; Chloride 107 mmol/L (98-107); Cholesterol 173 mg/dL (200); Creatinine, Serum 0.91 mg/dL (0.55-1.02); EST Glomerular Filtration Rate 65 mL/min (>60); Est Glom Filt Rate - Afr Amer 78 mL/min (>60); Ferritin 79 ng/mL (8-252); Globulin 3.5 g/dL (2.2-4.2); Glucose 91 mg/dL (74-106); High Density Lipoprotein 71 mg/dL; Iron 70 ug/dL (50-170); Iron Binding Capacity,Total 316 ug/dL (250-450); PERCENT IRON SATURATION 22.2 % (15.0-55.0); Potassium 4.6 mmol/L (3.5-5.1); Protein, Total 7.4 g/dL (6.4-8.2); Sodium Level 140 mmol/L (136-145); Thyroid Stim Hormone (TSH) 4.08 uIU/mL (0.358-3.74); Triglycerides 99 mg/dL; Very Low Density Lipoprotein 20 mg/dL (5-40)
[2019-10-16 10:56] LABS: Vitamin D,25 Hydroxy 42.4 ng/mL
== END ==
PROVIDERS: PCP Internal Medicine; Referring Provider Internal Medicine; Visit Provider Internal Medicine
DX: D64.9 Anemia, unspecified (principal); E55.9 Vitamin D deficiency, unspecified; Z13.220 Encounter for screening for lipoid disorders; M06.4 Inflammatory polyarthropathy; K90.0 Celiac disease; J45.909 Unspecified asthma, uncomplicated; Z87.19 Personal history of other diseases of the digestive system
CPT/HCPCS: 36415; 80053; 80061; 82306; 82728; 83540; 83550; 84439; 84443; 85025; 86141

== ENCOUNTER 2020-05-25 10:35 | Emergency (ER) | payer OTHER, SELFPAY ==
[2020-05-25 10:38] VITALS: BP 109/54; PULSE 76; RESP 14; TEMP 37; O2SAT 95; BMI 30.4
--- NOTE | 2020-05-25 10:48 | ED.DCSUM_ITS ---
History of Present Illness Chief Complaint: Syncope Informant: Patient Narrative: 74-year-old female presenting with 5 days of cough, loss of taste and smell, fatigue. 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 She is not sure if she is exposed to Covid?19. Patient states that after symptom onset she went to [place] with her family who live next-door. Today they are being tested for Covid?19 because they have cough and cold. Patient denies any fever. She does not have shortness of breath. Today she states she vomited and then fainted. She is unsure if she hit her head but states she was able to get up and walk to the couch. Patient also denies chest pain Past Medical History - Allergies and Home Meds Allergies/Adverse Reactions: Allergies No Known Allergies Allergy (Verified 09/16/14 17:05) Primary Care Physician: Anthony Phan DO [Primary Care Provider] - Prior records reviewed: Yes Past Medical History: - - Rheumatoid arthritis Surgical History: noncontributory Lives: Alone Smoking Status: Never smoker Alcohol: None Drugs: None Review of Systems General: Reports: Malaise. Denies: Chills, Fever Eyes: Reports: - - Mild loss of taste and smell. Denies: Visual changes - bilaterally, Diplopia ENT: Denies: Rhinorrhea, Sore throat Cardiovascular: Reports: - - Syncopal episode while vomiting. Denies: Chest pain, Palpitations Respiratory: Reports: Cough. Denies: Dyspnea, Sputum, Dyspnea on exertion Gastrointestinal: Reports: Nausea, Vomiting. Denies: Abdominal pain Genitourinary: Denies: Dysuria, Hematuria, Frequency Musculoskeletal: Denies: Myalgias, Arthralgias Skin: Denies: Rash, Wounds Neurological: Denies: Headache, Parasthesia, Numbness Physical Exam Vital Signs/Narrative: Vital Signs Temp Pulse Resp BP Pulse Ox 05/25/20 10:38 98.6 F 76 14 109/54 L 95 Inital Vital Signs reviewed: Yes General: Well nourished, No Acute Distress Head: Normocephalic Eyes: Perrl, EOMI ENT: Moist mucous membranes, No rhinorrhea Cardiovascular: Regular rate, Regular rhythm, No murmurs Respiratory: No distress, CTA bilaterally, Chest nontender Extremities: Nontender, No edema Skin: Normal color, No rash Neurological: Alert, Oriented x3, Cranial nerves II-XII grossly intact Psychological: Normal affect, Normal Mood Diagnostic/Tx/Re-eval Clinical Impression(s) from Imaging Studies Chest X-Ray 05/25/20 12:00 IMPRESSION: Degenerative changes, as described above. No demonstrated acute cardiopulmonary process. Electronically Signed: Jairo Veronica, at 13:15 EST Tel , Service support , Laboratory Data 05/25/20 05/25/20 05/25/20 11:15 11:15 11:15 WBC 3.9 L RBC 4.04 L Hgb 12.7 Hct 38.4 MCV 95.0 MCH 31.4 MCHC 33.1 RDW Std Deviation 45.5 H RDW Coeff of Tommy 13.5 Plt Count 177 MPV 10.0 Immature Gran % (Auto) 0.300 Neut % (Auto) 76.2 H Lymph % (Auto) 16.8 L [place] % (Auto) 6.1 Eos % (Auto) 0.3 Baso % (Auto) 0.3 Absolute Neuts (auto) 3.0 Absolute Lymphs (auto) 0.66 L Nucleated RBC % 0 Sodium 135 L Potassium 4.1 Chloride 103 Carbon Dioxide 27.0 Anion Gap 5 BUN 18 Creatinine 1.11 H Estim Creat Clear Calc 36.23 Est GFR (MDRD) Af Amer 62 Est GFR (MDRD) Non-Af 51 L BUN/Creatinine Ratio 16.2 Glucose 131 H Lactic Acid Calcium 8.5 Total Bilirubin 0.40 AST 26 ALT 32 Alkaline Phosphatase 99 Troponin I < 0.015 Total Protein 7.8 Albumin 4.0 Globulin 3.8 Albumin/Globulin Ratio 1.1 Procalcitonin 0.08 COVID-19 (JORGE A) 05/25/20 05/25/20 11:25 11:30 WBC RBC Hgb Hct MCV MCH MCHC RDW Std Deviation RDW Coeff of Tommy Plt Count MPV Immature Gran % (Auto) Neut % (Auto) Lymph % (Auto) [place] % (Auto) Eos % (Auto) Baso % (Auto) Absolute Neuts (auto) Absolute Lymphs (auto) Nucleated RBC % Sodium Potassium Chloride Carbon Dioxide Anion Gap BUN Creatinine Estim Creat Clear Calc Est GFR (MDRD) Af Amer Est GFR (MDRD) Non-Af BUN/Creatinine Ratio Glucose Lactic Acid 0.8 Calcium Total Bilirubin AST ALT Alkaline Phosphatase Troponin I Total Protein Albumin Globulin Albumin/Globulin Ratio Procalcitonin COVID-19 (JORGE A) Detected - Rhythm Strip Rhythm Strip: Sinus Rhythm Rate: 84 - EKG Initial EKG Interpretation: Sinus Rhythm, No Acute Injury Pattern - Medical Decision Making 74-year-old female presents with 5 days of symptoms which she is concerned she has Covid. Her family is also having symptoms of cough. Patient states she does not have any fevers but does have body aches as well as loss of taste and smell. She does not have any chest pain or shortness of breath. Patient had an episode of syncope today while vomiting. She feels better now and she does not have any lightheadedness or nausea currently. EKG performed on arrival shows a sinus rhythm at 84 bpm without ischemic changes interpreted by myself. Chest x- ray is interpreted by myself and the radiologist shows no acute process. Lab work is consistent with Covid. Opponent is negative. Electrolytes and renal function are normal. Patient given IV fluids. Patient is Covid positive as well. Given the patient's vital signs are stable and she is afebrile and not hypoxic I feel she is safe for discharge. Static vital signs are also negative. She does qualify for monoclonal antibodies and was given the information to schedule this. I did call the resource number and gave her name. Patient is given concerning signs or symptoms which she should return to the ER. She acknowledged understanding of these. Patient is stable for discharge at this time. Impression: 1. Syncope 2. Covid?19 infection ED Disposition - Plan for ED Patient: Disposition: Home or Assisted Living Instructions: Coronavirus Disease 2019 (COVID-19): Overview, Coronavirus Disease 2019 (COVID-19): Caring for Yourself or Others, ED Fainting, Uncertain Cause Referrals: Anthony Phan DO [Primary Care Provider] -
--- NOTE | 2020-05-25 11:14 | EKG12_ITS ---
Test Reason : SYNCOPE Blood Pressure : / mmHG Vent. Rate : 084 BPM Atrial Rate : 084 BPM P-R Int : 184 ms QRS Dur : 066 ms QT Int : 380 ms P-R-T Axes : 030 003 002 degrees QTc Int : 449 ms Normal sinus rhythm Normal ECG Confirmed by ILAN MANSFIELD, JESSICA ([id number]), film or videotape editor ANAID HDZ ([id number]) on 06/01/2020 9:10:03 AM Referred By: HASEEB Confirmed By:NITIN TALAVERA MD
--- NOTE | 2020-05-25 11:18 | NURSING ---
NO OLD EKGS
[2020-05-25 11:31] LABS: Absolute Lymphocyte Count 0.66 X10^3/uL (0.83-4.51); Basophil# 0.01 X10^3/uL; Basophil% 0.3 % (0-1); Eosinophil# 0.01 X10^3/uL; Eosinophils% 0.3 % (0-5); Hematocrit 38.4 % (37-47); Hemoglobin 12.7 g/dL (12.0-15.0); Lymphocyte # 0.66 X10^3/ul (4.0); Lymphocyte % 16.8 % (19-41); Mean Corp Hgb Conc 33.1 g/dL (32-36); Mean Corpuscular Hgb 31.4 pg (27.0-32.0); Monocyte# 0.24 X10^3/uL; Monocyte% 6.1 % (0-10); NRBC Flagged by Analyzer 0 % (0-5); Neutrophil # 2.99 X10^3/uL (2.7-7.7); Neutrophil % 76.2 % (47-70); Platelet Count 177 K/mm3 (150-450); RBC Distribution Width CV 13.5 % (11.6-14.6); RBC Distribution Width SD 45.5 fl (35.1-43.9); Red Blood Count 4.04 M/mm3 (4.2-5.4); White Blood Count 3.9 K/mm3 (4.4-11.0)
[2020-05-25 11:47] LABS: ALB/GLOB Ratio 1.1 RATIO (0.9-2.4); AST(SGOT) 26 U/L (15-37); Alanine Aminotransfer ALT/SGPT 32 U/L (13-56); Alkaline Phosphatase 99 U/L (45-117); Anion Gap 5 (5-15); BUN 18 mg/dL (7-18); BUN/Creat Ratio 16.2 RATIO (10-20); Calcium,Total 8.5 mg/dL (8.5-10.1); Chloride 103 mmol/L (98-107); Creatinine, Serum 1.11 mg/dL (0.55-1.02); EST Glomerular Filtration Rate 51 mL/min (>60); Est Glom Filt Rate - Afr Amer 62 mL/min (>60); Estimated Creatinine Clearance 36.23 ml/min; Globulin 3.8 g/dL (2.2-4.2); Glucose 131 mg/dL (74-106); Potassium 4.1 mmol/L (3.5-5.1); Protein, Total 7.8 g/dL (6.4-8.2); Sodium Level 135 mmol/L (136-145)
--- NOTE | 2020-05-25 12:00 | RAD_ITS ---
STUDY: X-RAY CHEST REASON FOR EXAM: Female, 74 years old. PT C/O INCREASED WEAKNESS AND COUGH X 5 DAYS. THIS AM N/V, SYNCOPE TECHNIQUE: Single AP portable view of the chest. COMPARISON: None. FINDINGS: The lungs are underexpanded , subsegmental atelectases are noted in the left lung base. There is no demonstrated pleural abnormality. Normal size heart. Normal mediastinum and gilberto. Normal visualized pulmonary arteries. Normal visualized aortic arch and descending thoracic aorta. Normal visualized thoracic spine. There is degenerative osteoarthritis of the bilateral shoulders. There is no demonstrated abnormality of the visualized soft tissue structures of the upper abdomen. RAD/Chest 1 View (Portable) IMPRESSION: Degenerative changes, as described above. No demonstrated acute cardiopulmonary process. Electronically Signed: Jairo Veronica, at 13:15 EST Tel , Service support ,
[2020-05-25 12:07] LABS: Lactic Acid 0.8 mmol/L (0.4-1.9)
[2020-05-25 12:16] VITALS: BP 102/51; BP 108/62; BP 97/65; PULSE 80; PULSE 83; PULSE 84
[2020-05-25 12:52] VITALS: BP 107/95; PULSE 75; RESP 18; O2SAT 98
[2020-05-25 13:13] LABS: Procalcitonin 0.08 ng/mL (0.00-0.09)
[2020-05-25 14:00] VITALS: BP 122/66; PULSE 84; RESP 18; O2SAT 96
== END 2020-05-25 14:20 | disposition home or self-care (01) ==
PROVIDERS: Emergency Provider Student in an Organized Health Care Education/Training Program; PCP Student in an Organized Health Care Education/Training Program
DX: U07.1 COVID-19 (principal); R55 Syncope and collapse; M06.9 Rheumatoid arthritis, unspecified
CPT/HCPCS: 71045; 80053; 83605; 84145; 84484; 85025; 87040; 87635; 93005; 96360; 96361; 99285; J7030; A4216; U0002

== ENCOUNTER → 2020-07-14 11:20 | Outpatient (CLI) | payer OTHER, SELFPAY ==
[2020-07-14 12:24] LABS: Absolute Neutrophil Count 2.6 X10^3/uL (2.0-7.7); Basophil# 0.04 X10^3/uL; Basophil% 0.9 % (0-1); Eosinophil# 0.21 X10^3/uL; Eosinophils% 4.5 % (0-5); Hematocrit 38.3 % (37-47); Hemoglobin 12.2 g/dL (12.0-15.0); Lymphocyte % 29.8 % (19-41); Mean Corp Hgb Conc 31.9 g/dL (32-36); Mean Corpuscular Hgb 29.7 pg (27.0-32.0); Mean Corpuscular Volume 93.2 fL (81-99); Mean Platelet Vol. 10.1 fl (6.2-12.0); Monocyte# 0.41 X10^3/uL; Monocyte% 8.7 % (0-10); NRBC Flagged by Analyzer 0 % (0-5); Neutrophil # 2.61 X10^3/uL (2.7-7.7); Neutrophil % 55.5 % (47-70); Platelet Count 267 K/mm3 (150-450); RBC Distribution Width CV 13.1 % (11.6-14.6); RBC Distribution Width SD 45.1 fl (35.1-43.9); Red Blood Count 4.11 M/mm3 (4.2-5.4); White Blood Count 4.7 K/mm3 (4.4-11.0)
[2020-07-14 12:47] LABS: ALB/GLOB Ratio 1.2 RATIO (0.9-2.4); AST(SGOT) 18 U/L (15-37); Alanine Aminotransfer ALT/SGPT 33 U/L (13-56); Alkaline Phosphatase 86 U/L (45-117); Anion Gap 4 (5-15); BUN 18 mg/dL (7-18); BUN/Creat Ratio 20.7 RATIO (10-20); Calcium,Total 8.8 mg/dL (8.5-10.1); Chloride 107 mmol/L (98-107); Creatinine, Serum 0.87 mg/dL (0.55-1.02); EST Glomerular Filtration Rate 68 mL/min (>60); Est Glom Filt Rate - Afr Amer 82 mL/min (>60); Globulin 3.4 g/dL (2.2-4.2); Glucose 89 mg/dL (74-106); Protein, Total 7.4 g/dL (6.4-8.2); Sodium Level 140 mmol/L (136-145)
== END ==
PROVIDERS: PCP Student in an Organized Health Care Education/Training Program; Referring Provider Internal Medicine Rheumatology; Visit Provider Internal Medicine Rheumatology
DX: M06.4 Inflammatory polyarthropathy (principal); K90.0 Celiac disease; J45.909 Unspecified asthma, uncomplicated; Z87.19 Personal history of other diseases of the digestive system
CPT/HCPCS: 36415; 80053; 85025

== ENCOUNTER → 2021-02-27 08:56 | Outpatient (CLI) | payer OTHER, SELFPAY ==
[2021-02-27 10:00] LABS: CPK Total, Creatine Kinase 62 U/L (26-192); CRP 6.82 mg/L (0.0-3.0)
[2021-02-27 13:48] LABS: ALB/GLOB Ratio 1.1 RATIO (0.9-2.4); AST(SGOT) 21 U/L (15-37); Alanine Aminotransfer ALT/SGPT 31 U/L (13-56); Albumin, Serum 3.9 g/dL (3.2-5.0); Alkaline Phosphatase 89 U/L (45-117); Anion Gap 5 (5-15); BUN 18 mg/dL (7-18); BUN/Creat Ratio 20.3 RATIO (10-20); Calcium,Total 9.1 mg/dL (8.5-10.1); Chloride 108 mmol/L (98-107); Cholesterol 166 mg/dL (200); Creatinine, Serum 0.89 mg/dL (0.55-1.02); EST Glomerular Filtration Rate 66 mL/min (>60); Est Glom Filt Rate - Afr Amer 80 mL/min (>60); Globulin 3.6 g/dL (2.2-4.2); Glucose 114 mg/dL (74-106); High Density Lipoprotein 58 mg/dL; Potassium 4.4 mmol/L (3.5-5.1); Protein, Total 7.5 g/dL (6.4-8.2); Sodium Level 141 mmol/L (136-145); Triglycerides 127 mg/dL; Very Low Density Lipoprotein 25 mg/dL (5-40)
[2021-02-27 14:10] LABS: Absolute Lymphocyte Count 1.98 X10^3/uL (0.83-4.51); Absolute Neutrophil Count 5.1 X10^3/uL (2.0-7.7); Basophil# 0.04 X10^3/uL; Basophil% 0.5 % (0-1); Eosinophil# 0.17 X10^3/uL; Eosinophils% 2.1 % (0-5); Hematocrit 37.9 % (37-47); Hemoglobin 12.3 g/dL (12.0-15.0); Lymphocyte # 1.98 X10^3/ul (0.83-4.51); Lymphocyte % 24.6 % (19-41); Mean Corp Hgb Conc 32.5 g/dL (32-36); Mean Corpuscular Hgb 30.5 pg (27.0-32.0); Mean Platelet Vol. 9.3 fl (6.2-12.0); Monocyte# 0.69 X10^3/uL; Monocyte% 8.6 % (0-10); NRBC Flagged by Analyzer 0 % (0-5); Neutrophil # 5.14 X10^3/uL (2.7-7.7); Platelet Count 294 K/mm3 (150-450); RBC Distribution Width CV 12.8 % (11.6-14.6); RBC Distribution Width SD 44.5 fl (35.1-43.9); Red Blood Count 4.03 M/mm3 (4.2-5.4)
[2021-02-27 14:26] LABS: Hemoglobin A1c 6.2 % (3.8-5.6)
[2021-03-01 08:44] LABS: Vitamin B12 377 pg/mL (211-911); Vitamin D,25 Hydroxy 41.4 ng/mL
== END ==
PROVIDERS: PCP Student in an Organized Health Care Education/Training Program; Referring Provider Student in an Organized Health Care Education/Training Program; Visit Provider Student in an Organized Health Care Education/Training Program
DX: R20.2 Paresthesia of skin (principal); R73.9 Hyperglycemia, unspecified; M79.10 Myalgia, unspecified site; M06.4 Inflammatory polyarthropathy
CPT/HCPCS: 36415; 80053; 80061; 82306; 82550; 82607; 83036; 85025; 86140; 86769